=== PATIENT | male | born 1965 | race Caucasian/White ===

== ENCOUNTER 2023-06-08 09:20 | Inpatient (IN) | payer MEDICARE, MEDICAID, SELFPAY ==
[2023-06-08] VITALS (20 sets, daily range): BP systolic 74–128; BP diastolic 43–87; PULSE 66–77; RESP 14–22; TEMP 35.7–37.1; O2SAT 93–97; BMI 28.4; BMI 27.4
--- NOTE | 2023-06-08 09:51 | RAD_ITS ---
STUDY: X-RAY CHEST REASON FOR EXAM: Male, 58 years old. Confusion TECHNIQUE: Single AP portable view of the chest. COMPARISON: None. FINDINGS: EKG electrodes are seen. The lungs are clear and expanded. There is no demonstrated pleural abnormality. Normal size heart. Normal mediastinum and hermelinda. Normal visualized pulmonary arteries. Normal visualized aortic arch and descending thoracic aorta. Normal visualized thoracic spine. Normal visualized ribs, clavicles, and shoulders. There is no demonstrated abnormality of the visualized soft tissue structures of the upper abdomen. RAD/Chest 1 View (Portable) IMPRESSION: Normal x-ray examination of the chest. Electronically Signed: Rivera Murray MD at 11:37 EDT ,
--- NOTE | 2023-06-08 09:54 | EKG12_ITS ---
Test Reason : SOB Blood Pressure : / mmHG Vent. Rate : 068 BPM Atrial Rate : 068 BPM P-R Int : 186 ms QRS Dur : 100 ms QT Int : 410 ms P-R-T Axes : 058 040 039 degrees QTc Int : 435 ms Normal sinus rhythm Low voltage QRS Nonspecific T wave abnormality Abnormal ECG Confirmed by Lito Vaughan ([id number]), newspaper photo editor ULICES PULLIAM ([id number]) on 06/09/2023 11:15:20 AM Referred By: Confirmed By:Lito Vaughan
--- NOTE | 2023-06-08 09:57 | EX.ED.DYSGE1 ---
HPI History of Present Illness Chief Complaint: Weakness Informant: [facility] Limited: uncooperative Onset/Context/Timing Onset: Today Timing: Continuous Quality: Confused Location: Generalized Worsened by: Nothing Relieved by: Nothing Narrative Narrative: Patient presents with confusion and hallucinations that was noticed today at the extended care facility. Patient is a poor informant. Patient is confused. Patient knows he is in [place] but does not know the year. Patient does not answer questions appropriately. ECF staff reports that the patient became confused today. ECF staff noted that the patient's blood pressure was low. ECF staff noted that the patient was having some hallucinations today. ECF staff also reports that he was in contact with someone who was positive for COVID recently. The patient was then transferred to the emergency department. [facility] Medical History Constipation COPD exacerbation Delusional disorder Depression Drug-induced movement disorder GERD (gastroesophageal reflux disease) HTN (hypertension) Hyperlipidemia Hyponatremia Hypothyroidism Impaired hearing Noncompliance w/medication treatment due to intermit use of medication Osteoarthritis Schizoaffective disorder Schizophrenia Tobacco abuse Vitamin D deficiency Medical History unable to obtain unable to obtain Home Medications acetaminophen 325 mg tablet (Aphen) 650 mg PO Q4H PRN pain 06/08/23 [History Last Taken Unknown] aluminum-mag hydroxide-simethicone 200 mg-200 mg-20 mg/5 mL oral susp (Maalox Advanced) 30 ml PO Q8H PRN indigestion 06/08/23 [History Last Taken Unknown] atorvastatin 10 mg tablet 20 mg PO DAILY 06/08/23 [History Last Taken Unknown] bupropion HCl 150 mg 24 hr tablet, extended release (Wellbutrin XL) 150 mg PO DAILY 06/08/23 [History Last Taken Unknown] bupropion HCl 300 mg 24 hr tablet, extended release (Wellbutrin XL) 300 mg PO DAILY 06/08/23 [History Last Taken Unknown] cholecalciferol (vitamin D3) 125 mcg (5,000 unit) capsule 125 mcg PO DAILY 06/08/23 [History Last Taken Unknown] clozapine 100 mg tablet 100 mg PO DAILY SCHIZOPHRENIA 06/08/23 [History Last Taken Unknown] diazepam 10 mg tablet 10 mg PO BID 06/08/23 [History Last Taken Unknown] famotidine 20 mg tablet 20 mg PO DAILY 06/08/23 [History Last Taken Unknown] hydrochlorothiazide 12.5 mg tablet 12.5 mg PO DAILY 06/08/23 [History Last Taken Unknown] ibuprofen 200 mg tablet (Advil) 400 mg PO Q6H PRN pain 06/08/23 [History Last Taken Unknown] levofloxacin 500 mg tablet 500 mg PO DAILY 06/08/23 [History Last Taken Unknown] lisinopril 10 mg tablet 10 mg PO DAILY 06/08/23 [History Last Taken Unknown] loperamide 2 mg capsule 4 mg PO PRN 06/08/23 [History Last Taken Unknown] lorazepam 1 mg tablet 1 mg PO Q6H PRN anxiety 06/08/23 [History Last Taken Unknown] magnesium hydroxide 400 mg/5 mL oral suspension (Yuan Milk of Magnesia) 30 ml PO DAILY PRN constipation 06/08/23 [History Last Taken Unknown] nicotine (polacrilex) 2 mg buccal mini lozenge (Nicorette) 2 mg buccal Q2H 06/08/23 [History Last Taken Unknown] olanzapine 5 mg tablet 5 mg PO DAILY 06/08/23 [History Last Taken Unknown] oseltamivir 75 mg capsule (Tamiflu) 75 mg PO BID 06/08/23 [History Last Taken Unknown] oxcarbazepine 300 mg tablet (Trileptal) 300 mg PO BID 06/08/23 [History Last Taken Unknown] polyethylene glycol 3350 17 gram/dose oral powder (ClearLax) 17 g PO DAILY PRN constipation 06/08/23 [History Last Taken Unknown] propranolol 120 mg capsule,24 hr,extended release (Inderal LA) 120 mg PO Q24H 06/08/23 [History Last Taken Unknown] psyllium husk 3.4 gram/5.4 gram oral powder (Metamucil) 1 tbsp PO TID PRN constipation 06/08/23 [History Last Taken Unknown] Allergy/AdvReac Type Severity Reaction Status Date / Time No Known Allergies Allergy Verified 06/08/23 09:25 Family History unable to obtain unable to obtain Surgical History unable to obtain unable to obtain Social History (Updated 06/08/23 @ 12:[address] Lupe Thomas DO) housing: assisted Smoking Status: Former smoker ROS ROS ED Review of Systems ROS Unobtainable: due to encephalopathy, due to mental condition and due to mental status EXAM Physical Exam Const Vital Signs: 06/08/23 09:22 06/08/23 10:25 06/08/23 10:30 Temperature 96.9 F L 98.1 F Temperature Source Temporal Temporal Pulse Rate 70 72 70 Respiratory Rate 21 H 14 19 H Respiratory Pattern Blood Pressure 77/43 L 96/76 101/70 Blood Pressure Mean 54 82 80 Pulse Ox 94 95 97 Oxygen Delivery Method Room Air Room Air Room Air 06/08/23 10:31 06/08/23 11:22 06/08/23 12:12 Temperature 98.2 F 97.8 F Temperature Source Temporal Temporal Pulse Rate 74 77 Respiratory Rate 16 18 Respiratory Pattern Normal Blood Pressure 90/71 107/70 Blood Pressure Mean 77 82 Pulse Ox 95 94 Oxygen Delivery Method Room Air Positive well nourished and well developed General Appearance ED: well developed and NAD Neck supple and no JVD Resp normal respiratory effort and clear to auscultation bilaterally Cardio regular rate and regular rhythm GI non-tender Palpation: soft Extremity normal to inspection General Extremety ED: Negative for edema or tenderness General Extremity: Negative for edema Neuro CN's II-XII intact bilaterally and no sensory deficits noted Sensorium / Orientation: alert and orientation impaired Motor Exam: strength 5/5 throughout Psych Mood & Affect: anxious MDM MDM MDM Narrative Medical decision making narrative: Differential diagnosis includes hypercarbia, electrolyte abnormality, dehydration, stroke, intracranial bleeding, hepatic encephalopathy, dehydration, cardiac dysrhythmia, cardiac ischemia, congestive heart failure, viral infection, urinary tract infection, and coagulopathy. CT scan of the brain will be obtained to assess for intracranial bleeding and stroke. Chest x-ray will be obtained to assess for pneumonia. EKG will be obtained to assess for cardiac dysrhythmia and cardiac ischemia. CBC will be obtained to assess for leukocytosis and anemia. Comprehensive metabolic profile will be obtained to assess for hepatic function, renal function, and electrolyte abnormality. Serum ammonia level will be obtained to assess for hepatic encephalopathy. Urinalysis will be obtained to assess for urinary tract infection. PT with INR and PTT will be obtained to assess for coagulopathy. High-sensitivity troponin will be obtained to assess for cardiac ischemia. 2-hour repeat high-sensitivity troponin will be obtained to assess for ongoing cardiac ischemia. BNP will be obtained to assess for congestive heart failure. Lactic acid will be obtained to assess for sepsis. Serum alcohol level will be obtained to assess for alcohol intoxication. COVID-19, influenza, and RSV PCR will be obtained to assess for viral infection. Urine culture will be obtained to assess for urinary tract infection. Blood cultures will be obtained to assess for sepsis. Arterial blood gas will be obtained to assess for hypercarbia. Lab Data Attestation: I reviewed the patient's lab results. Lab results narrative: CBC was reviewed. There is a mild leukocytosis of 15.2. The remainder is within normal limits. PT was INR and PTT were reviewed and were within normal limits. Comprehensive metabolic profile was reviewed. Sodium was low at 127 and chloride was 93. CO2 was low at 17 and anion gap was elevated at 17. BUN was 59 creatinine 6.48. AST was slightly elevated at 82 and ALT was slightly elevated at 99. Serum ammonia level was reviewed and was normal at 24. BNP was reviewed and was normal at 3.6. High-sensitivity troponin was reviewed and was normal at 14. Serum alcohol level was reviewed and was less than 3.0. Serum acetone was reviewed and was negative. Urinalysis is reviewed. Leukocyte esterase was 25 with positive nitrites. There is 0-5 red blood cells and 0-5 white blood cells noted. Serum lactate was reviewed and was normal at 1.6. COVID-19 PCR was reviewed and was negative. Influenza PCR was reviewed and was positive for influenza A and negative for influenza B. RSV PCR was reviewed and was negative. Labs: Laboratory Results - last 24 hr 06/08/23 06/08/23 06/08/23 09:30 10:15 11:15 WBC 15.2 H RBC 4.71 Hgb 13.8 Hct 40.6 MCV 86.2 MCH 29.3 MCHC 34.0 RDW Std Deviation 39.3 RDW Coeff of Noam 12.4 Plt Count 194 MPV 10.1 Immature Gran % (Auto) 0.400 Neut % (Auto) 85.0 H Lymph % (Auto) 6.9 L [place] % (Auto) 7.6 Eos % (Auto) 0.0 Baso % (Auto) 0.1 Absolute Neuts (auto) 13.0 H Absolute Lymphs (auto) 1.05 Nucleated RBC % 0 PT 14.0 INR 1.1 APTT 24.7 Sodium 127 L Potassium 5.1 Chloride 93 L Carbon Dioxide 17.0 L Anion Gap 17 H BUN 59 H Creatinine 6.48 H Estim Creat Clear Calc 14.86 Est GFR (MDRD) Af Amer 11 L Est GFR (MDRD) Non-Af 9 L BUN/Creatinine Ratio 9.1 L Glucose 118 H Lactic Acid 1.6 Calcium 9.4 Total Bilirubin 0.50 AST 82 H ALT 99 H Alkaline Phosphatase 54 Ammonia 24.0 Troponin I High Sens 14 B-Natriuretic Peptide 3.6 Total Protein 7.7 Albumin 3.6 Globulin 4.1 Albumin/Globulin Ratio 0.9 Urine Color Urine Clarity Urine pH Ur Specific [place] Urine Protein Urine Glucose (UA) Urine Ketones Urine Occult Blood Urine Nitrite Urine Bilirubin Urine Urobilinogen Ur Leukocyte Esterase Urine RBC Urine WBC Ur Squamous Epith Cells Urine Bacteria Urine Mucus Ur Random Sodium Urine Creatinine Ethyl Alcohol < 3.0 Acetone Level NEGATIVE 06/08/23 11:30 WBC RBC Hgb Hct MCV MCH MCHC RDW Std Deviation RDW Coeff of [place] Plt Count MPV Immature Gran % (Auto) Neut % (Auto) Lymph % (Auto) [place] % (Auto) Eos % (Auto) Baso % (Auto) Absolute Neuts (auto) Absolute Lymphs (auto) Nucleated RBC % PT INR APTT Sodium Potassium Chloride Carbon Dioxide Anion Gap BUN Creatinine Estim Creat Clear Calc Est GFR (MDRD) Af Amer Est GFR (MDRD) Non-Af BUN/Creatinine Ratio Glucose Lactic Acid Calcium Total Bilirubin AST ALT Alkaline Phosphatase Ammonia Troponin I High Sens B-Natriuretic Peptide Total Protein Albumin Globulin Albumin/Globulin Ratio Urine Color Yellow Urine Clarity Sl. Cloudy Urine pH 5.0 Ur Specific [place] 1.015 Urine Protein 30 H Urine Glucose (UA) Normal Urine Ketones 5 H Urine Occult Blood 10 H Urine Nitrite Positive H Urine Bilirubin 1 H Urine Urobilinogen 1 H Ur Leukocyte Esterase 25 H Urine RBC 0-5 SEEN Urine WBC 0-5 SEEN Ur Squamous Epith Cells 0-5 SEEN Urine Bacteria 1+ Urine Mucus 1+ Ur Random Sodium 7 Urine Creatinine 315.00 Ethyl Alcohol Acetone Level ABG Data ABG results: ABG 06/08/23 11:04 Specimen Type ART Sample Site L Radial pH 7.36 Bicarbonate Actual 18.4 L Total CO2 19 Base Excess -7 L O2 Saturation 91 L ABG pCO2 32.6 L ABG pO2 63 L O2 Delivery Device Room Air Vent Mode Not entered Radiography Chest X-Ray - ED: 1 View, Read by ED Physician, Read by Radiologist and No Acute Disease Diagnostic Testing: Clinical Impression(s) from Imaging Studies Chest X-Ray 06/08/23 09:51 IMPRESSION: Normal x-ray examination of the chest. Electronically Signed: Rivera Murray MD at 11:37 EDT , Brain CT 06/08/23 10:42 IMPRESSION: Tiny lacunae in the insular cortex of the left temporal lobe. This may be subacute. Electronically Signed: Rivera Murray MD at 11:36 EDT , CT scan of the brain was obtained. There are Familia lacunae in the insular cortex of the left temporal lobe. This may be subacute. This was interpreted by the radiologist was also independently reviewed by myself. Portable 1 view chest x-ray was obtained. On my independent interpretation, lung decker are clear. There is normal cardiac silhouette. Bony thorax is normal. There is no acute process noted. Radiologist also interpreted the x-ray and agrees. EKG Initial EKG: Attestation: I personally reviewed and interpreted this EKG as follows: Interpretation: Sinus Rhythm (68), No Acute Injury Pattern and Non-Specific ST Changes Comments: EKG was obtained. On my independent interpretation, it showed a normal sinus rhythm with a rate of 68. ME interval, QRS interval, and QTc intervals were all normal. [place] was normal. There are nonspecific ST-T wave changes. Prior EKG tracings: not available for review Prior: No Prior Management Discussion w/another healthcare provider: Hospitalist Treatment and Re-Evaluation :: Patient was given IV fluids. Patient's blood pressure improved after this. Patient remained confused here in the emergency department. Patient was trying to get out of bed frequently. Because of this, patient was given a dose of Ativan. Patient was advised of the need for hospitalization. Case was discussed with the hospitalist. She will admit the patient to her service. Critical Care Time Critical Care Time: Yes Critical care time (excluding procedures): 30-74 minutes (33), Including time spent:, Discussing w/Patient &/or Family/Scrap Collector, Discussing w/Consultants, Arranging Admission or Transfer and Performing Direct Patient Care at Bedside Discharge Plan Dx/Rx/DC Orders Clinical Impression: Acute kidney injury, Influenza A, Hyponatremia, Altered mental status Disposition Disposition: Acute Care Hospital [facility] Discharge Date/Time: 06/08/23 14:35
[2023-06-08 10:21] LABS: Absolute Lymphocyte Count 1.05 X10^3/uL (0.83-4.51); Basophil# 0.02 X10^3/uL; Basophil% 0.1 % (0-1); Hematocrit 40.6 % (40-54); Hemoglobin 13.8 g/dL (13.0-16.5); Lymphocyte # 1.05 X10^3/ul (0.83-4.51); Lymphocyte % 6.9 % (19-41); Mean Corpuscular Hgb 29.3 pg (27.0-32.0); Mean Corpuscular Volume 86.2 fL (80-94); Mean Platelet Vol. 10.1 fl (6.2-12.0); Monocyte# 1.15 X10^3/uL; Monocyte% 7.6 % (0-10); NRBC Flagged by Analyzer 0 % (0-5); Neutrophil # 12.95 X10^3/uL (2.7-7.7); Platelet Count 194 K/mm3 (150-450); RBC Distribution Width CV 12.4 % (11.6-14.6); RBC Distribution Width SD 39.3 fl (35.1-43.9); Red Blood Count 4.71 M/mm3 (4.6-6.2); White Blood Count 15.2 K/mm3 (4.4-11.0)
[2023-06-08 10:24] LABS: International Normalized Ratio 1.1
[2023-06-08 10:25] LABS: Partial Thromboplast Time 24.7 Seconds (24.1-36.2)
[2023-06-08] MEDS: 0.9% Normal Saline (1000mL) 1,000 ML 1000 ML IV ×2 (10:30→12:27)
--- NOTE | 2023-06-08 10:31 | ED.RN ---
NO OLD EKG
[2023-06-08 10:35] LABS: Lactic Acid 1.6 mmol/L (0.4-1.9)
[2023-06-08 10:41] LABS: ALB/GLOB Ratio 0.9 RATIO (0.9-2.4); AST(SGOT) 82 U/L (15-37); Alanine Aminotransfer ALT/SGPT 99 U/L (16-61); Albumin, Serum 3.6 g/dL (3.2-5.0); Alkaline Phosphatase 54 U/L (45-117); Anion Gap 17 (5-15); BUN 59 mg/dL (7-18); BUN/Creat Ratio 9.1 RATIO (10-20); Calcium,Total 9.4 mg/dL (8.5-10.1); Chloride 93 mmol/L (98-107); Creatinine, Serum 6.48 mg/dL (0.70-1.30); EST Glomerular Filtration Rate 9 mL/min (>60); Est Glom Filt Rate - Afr Amer 11 mL/min (>60); Estimated Creatinine Clearance 14.86 ml/min; Globulin 4.1 g/dL (2.2-4.2); Glucose 118 mg/dL (74-106); Potassium 5.1 mmol/L (3.5-5.1); Protein, Total 7.7 g/dL (6.4-8.2); Sodium Level 127 mmol/L (136-145); Troponin-I HS (w/2H Reflex) 14 pg/mL (3.0-78.0)
--- NOTE | 2023-06-08 10:42 | CT_ITS ---
STUDY: CT BRAIN WITHOUT CONTRAST REASON FOR EXAM: Male, 58 years old. Altered mental status RADIATION DOSAGE (If Supplied By Facility): CTDIvol = ( 44.99 ) mGy, DLP = ( 863.60 ) mGycm TECHNIQUE: Transaxial CT imaging of the brain was performed without administration of intravenous contrast material. Individualized dose optimization techniques were used for this CT. COMPARISON: No relevant priors. FINDINGS: Normal soft tissue structures. Normal calvarium. Normal size ventricles and extra-axial spaces for the patient''s age. Normal white matter tracts of the cerebral hemispheres. Tiny lacunar in the insular cortex of the left temporal lobe. This may be subacute. Normal brainstem. Normal cerebellum. There is no intracranial hemorrhage. There are no findings of an acute ischemic infarction. Minimal mucosal thickening at the bases of the right and left maxillary sinus. CT/Brain/Head without Contrast IMPRESSION: Tiny lacunae in the insular cortex of the left temporal lobe. This may be subacute. Electronically Signed: Rivera Murray MD at 11:36 EDT ,
[2023-06-08 10:45] LABS: BNP,B-Type NATRIURETIC PEPTIDE 3.6 pg/mL (0-100)
[2023-06-08 11:08] LABS: Base Excess -7 mmol/L (-2 to +2); Bicarbonate 18.4 mmol/L (22-26); Blood Gas Specimen Type ART; Mode Not entered; O2 Delivery Device Room Air; PO2 63 mmHG (75-100); SITE L Radial; SO2 91 % (95-99); Total Carbon Dioxide 19 mmol/L; pCO2 32.6 mmHg (35-45); pH 7.36 (7.35-7.45)
[2023-06-08 11:20] LABS: Alcohol, Blood (Medical)-Serum < 3.0 mg/dL
[2023-06-08 11:22] LABS: Reflex Troponin-HS? (from REC) N
[2023-06-08 11:44] LABS: Color, Urine Yellow (Yellow); Glucose, Dipstick Normal (Normal); Ketone-Dipstick 5 mg/dl (Negative); Leukocyte Esterase-Dipstick 25 /ul (Negative); Nitrite-Dipstick Positive (Negative); Occult Blood-Urine 10 /ul (Negative); Protein-Dipstick 30 mg/dl (Negative); Specific Gravity, Urine 1.015 (1.002-1.030); Urine Clarity Sl. Cloudy (Clear); Urine Urobilinogen 1 mg/dl (Normal)
[2023-06-08 11:45] LABS: Urine Bilirubin Dipstick 1 mg/dL (Negative)
[2023-06-08 11:51] LABS: Bacteria 1+ /hpf (None Seen); Mucous, Urine 1+ /hpf (<or=2+); Red Blood Cells-Urine 0-5 SEEN /hpf (0-5); Squamous Epithelial Cells - UA 0-5 SEEN /hpf (0-5); White Blood Cells 0-5 SEEN /hpf (0-5)
[2023-06-08] MEDS: Lorazepam 2 MG/ML WCH Syringe 0.5 MG IV (12:28)
--- NOTE | 2023-06-08 12:28 | ED.RN ---
rn went to waste ativan into waste jug of medroom and entire medication was accidentally wasted. medication was wasted in med machine with Brianda Ross RN and new syringe was pulled and wasted into jug machine to appropriate dose of 0.5mg.
--- NOTE | 2023-06-08 12:41 | US_ITS ---
STUDY: RENAL ULTRASOUND - COMPLETE REASON FOR EXAM: 50 year, old. Acute kidney injury. TECHNIQUE: Ultrasound evaluation of the kidneys was performed with real-time and static eden-scale imaging. COMPARISON: None. FINDINGS: RIGHT KIDNEY: Normal location of the right kidney, which is normal in size. The right kidney measures 11.3 sorry by 5.5 cm x 7.2 cm. There is a normal cortex of the right kidney. The renal cortex measures 1.6 cm. There is no right renal mass or cyst. There are no right renal calculi. There is no right hydronephrosis. DISTAL RIGHT URETER: There is non-visualization of the distal right ureter. There is no demonstrated right ureterovesical junction calculus. There is no demonstrated right ureteral jet. LEFT KIDNEY: Normal location of the left kidney, which is normal in size. The left kidney measures 10.8 cm x 5.7 cm x 6.5 cm. There is a normal cortex of the left kidney. The renal cortex measures 1.3 cm. There is no left renal mass or cyst. There are no left renal calculi. There is no left hydronephrosis. DISTAL LEFT URETER: There is non-visualization of the distal left ureter. There is no demonstrated left ureterovesical junction calculus. There is no demonstrated left ureteral jet. BLADDER: The distended urinary bladder has a volume of 66 ml. There is a normal wall thickness of the distended urinary bladder. There is no demonstrated mass within the urinary bladder. There are no demonstrated bladder calculi. US/Kidney and Bladder IMPRESSION: Normal ultrasound of the kidneys and urinary bladder. Electronically Signed: Rivera Murray MD at 14:27 EDT ,
--- NOTE | 2023-06-08 12:41 | PCM.HP.STD ---
HPI - General General Date of Admission: 06/08/23 Date of Service: 06/08/23 Chief Complaint: Altered mental status HPI Narrative JANAE PANG, is a 58 M who presented to the emergency department which [facility] on 06/08/2023 due to altered mental status. He is a resident at a local [facility] and was fairly confused on admission. He was able to say he was in [place] but did not know the month or year and does not answer questions appropriately. Per [facility] staff reporting he became confused on the day of presentation and he was found to have low blood pressure. [facility] staff also noted that he was having some hallucinations. It was reported that he had contact with someone who was positive for COVID recently and was transferred to the emergency department. Patient was not able to contribute any history and taking off at the time of presentation. On my exam patient was awake but not participating in any questions Vital signs on presentation showed temperature of 96.9, heart rate was 70, blood pressure initially was 77/43 but has improved to 107/70 after IV fluids have been given, respiratory rate is 21 oxygen saturations were 94% on room air. CBC shows a leukocytosis with a white count of 15.2 and a left shift at an 85.0% neutrophilia. He does have a lymphopenia. Coags are unremarkable. ABG showed a blood gas with a pH of 7.36/bicarb 18.4/pCO2 was 32.6/pO2 was 63 with a sat of 91% on room air. His chemistry panel shows significant hyponatremia with a sodium of 127, hypochloremia with a chloride of 93, and elevated serum bicarbonate 17 with an anion gap of 17. His BUN and serum creatinine were markedly elevated at 59 and 6.48. His baseline is unknown as there is no previous data in our system. Lactic acid was normal at 1.6. Transaminases were elevated with an AST of 82 and an ALT of 99. Troponin was normal. BNP was unremarkable at 3.6. His urine was somewhat suggestive of infection showing some nitrites and leuk esterase however there were no white cells. He did have 1+ bacteria. Ethyl alcohol level was unremarkable and acetone was negative. CT of the brain showed tiny lacunar in the insular cortex of the left temporal lobe which was felt to possibly be subacute. Chest x-ray showed unremarkable exam. In the emergency department he was given lorazepam 2 mg IV push x 1 dose and given 2 L IV fluids. [facility] Medical History Constipation COPD exacerbation Delusional disorder Depression Drug-induced movement disorder GERD (gastroesophageal reflux disease) HTN (hypertension) Hyperlipidemia Hyponatremia Hypothyroidism Impaired hearing Noncompliance w/medication treatment due to intermit use of medication Osteoarthritis Schizoaffective disorder Schizophrenia Tobacco abuse Vitamin D deficiency Medical History unable to obtain Home Medications acetaminophen 325 mg tablet (Aphen) 650 mg PO Q4H PRN pain 06/08/23 [History Last Taken Unknown] aluminum-mag hydroxide-simethicone 200 mg-200 mg-20 mg/5 mL oral susp (Maalox Advanced) 30 ml PO Q8H PRN indigestion 06/08/23 [History Last Taken Unknown] atorvastatin 10 mg tablet 20 mg PO DAILY 06/08/23 [History Last Taken Unknown] bupropion HCl 150 mg 24 hr tablet, extended release (Wellbutrin XL) 150 mg PO DAILY 06/08/23 [History Last Taken Unknown] bupropion HCl 300 mg 24 hr tablet, extended release (Wellbutrin XL) 300 mg PO DAILY 06/08/23 [History Last Taken Unknown] cholecalciferol (vitamin D3) 125 mcg (5,000 unit) capsule 125 mcg PO DAILY 06/08/23 [History Last Taken Unknown] clozapine 100 mg tablet 100 mg PO DAILY SCHIZOPHRENIA 06/08/23 [History Last Taken Unknown] diazepam 10 mg tablet 10 mg PO BID 06/08/23 [History Last Taken Unknown] famotidine 20 mg tablet 20 mg PO DAILY 06/08/23 [History Last Taken Unknown] hydrochlorothiazide 12.5 mg tablet 12.5 mg PO DAILY 06/08/23 [History Last Taken Unknown] ibuprofen 200 mg tablet (Advil) 400 mg PO Q6H PRN pain 06/08/23 [History Last Taken Unknown] levofloxacin 500 mg tablet 500 mg PO DAILY 06/08/23 [History Last Taken Unknown] lisinopril 10 mg tablet 10 mg PO DAILY 06/08/23 [History Last Taken Unknown] loperamide 2 mg capsule 4 mg PO PRN 06/08/23 [History Last Taken Unknown] lorazepam 1 mg tablet 1 mg PO Q6H PRN anxiety 06/08/23 [History Last Taken Unknown] magnesium hydroxide 400 mg/5 mL oral suspension ([place] of eBuddy) 30 ml PO DAILY PRN constipation 06/08/23 [History Last Taken Unknown] nicotine (polacrilex) 2 mg buccal mini lozenge (Nicorette) 2 mg buccal Q2H 06/08/23 [History Last Taken Unknown] olanzapine 5 mg tablet 5 mg PO DAILY 06/08/23 [History Last Taken Unknown] oseltamivir 75 mg capsule (Tamiflu) 75 mg PO BID 06/08/23 [History Last Taken Unknown] oxcarbazepine 300 mg tablet (Trileptal) 300 mg PO BID 06/08/23 [History Last Taken Unknown] polyethylene glycol 3350 17 gram/dose oral powder (ClearLax) 17 g PO DAILY PRN constipation 06/08/23 [History Last Taken Unknown] propranolol 120 mg capsule,24 hr,extended release (Inderal LA) 120 mg PO Q24H 06/08/23 [History Last Taken Unknown] psyllium husk 3.4 gram/5.4 gram oral powder (Metamucil) 1 tbsp PO TID PRN constipation 06/08/23 [History Last Taken Unknown] Allergy/AdvReac Type Severity Reaction Status Date / Time No Known Allergies Allergy Verified 06/08/23 09:25 Family History unable to obtain unable to obtain Surgical History unable to obtain unable to obtain Social History (Updated 06/08/23 @ 12:[address] Lupe Thomas, DO) housing: senior living Smoking Status: Former smoker ROS Review of Systems ROS Unobtainable: due to encephalopathy and due to mental status Vital Signs Vital Signs Vital Signs: 06/08/23 09:22 06/08/23 10:25 06/08/23 10:30 Temperature 96.9 F L 98.1 F Temperature Source Temporal Temporal Pulse Rate 70 72 70 Respiratory Rate 21 H 14 19 H Respiratory Pattern Blood Pressure 77/43 L 96/76 101/70 Blood Pressure Mean 54 82 80 Pulse Ox 94 95 97 Oxygen Delivery Method Room Air Room Air Room Air 06/08/23 10:31 06/08/23 11:22 06/08/23 12:12 Temperature 98.2 F 97.8 F Temperature Source Temporal Temporal Pulse Rate 74 77 Respiratory Rate 16 18 Respiratory Pattern Normal Blood Pressure 90/71 107/70 Blood Pressure Mean 77 82 Pulse Ox 95 94 Oxygen Delivery Method Room Air Weight Weight: 95 kg Body Mass Index (BMI) 28.4 Physical Exam Const alert, no apparent distress and well nourished; Negative for oriented x3, average body habitus or healthy appearing Constitutional Narrative: Overweight, agitated, middle-aged, white male, lying in bed, intermittently trying to punch me and kick me, patient will not participate with orientation questions however it appears he is currently only oriented to self, otherwise appears comfortable and nontoxic General Appearance: uncooperative HEENT normocephalic, head/scalp atraumatic and hearing grossly normal bilaterally HEENT Narrative: Patient resisting oral exam Eyes PERRL, EOMs intact bilaterally and conjunctivae normal Eyes Narrative: No scleral icterus Neck no lymphadenopathy and supple Neck Narrative: Trachea midline, no thyroid enlargement Resp normal respiratory effort, no retractions, no use of accessory muscles and clear to auscultation bilaterally Auscultation: Negative for rales, rhonchi or wheezes Cardio regular rate, regular rhythm, S1 normal heart sound, S2 normal heart sound, no murmurs, no rub, no gallops and no clicks GI normal to inspection, nondistended, normoactive bowel sounds, soft to palpation and non-tender Extremity no clubbing, cyanosis or edema Extremity Narrative: Pedal pulses are 2+ Skin no rashes or lesions noted, no wounds, skin turgor normal, no jaundice, no petechiae and no mottling Skin Narrative: No significant lesions noted Neuro moves all extremities and no focal motor deficits Sensorium / Orientation: awake and alert Speech: speech normal Psych Psych Narrative: Agitated and combative Results Lab / Micro Data Attestation: I reviewed the patient's lab results. 06/08/23 09:30 06/08/23 15:40 Labs: Laboratory Results - last 24 hr 06/08/23 09:30: WBC 15.2 H, RBC 4.71, Hgb 13.8, Hct 40.6, MCV 86.2, MCH 29.3, MCHC 34.0, RDW Std Deviation 39.3, RDW Coeff of Noam 12.4, Plt Count 194, MPV 10.1, Immature Gran % (Auto) 0.400, Neut % (Auto) 85.0 H, Lymph % (Auto) 6.9 L, [place] % (Auto) 7.6, Eos % (Auto) 0.0, Baso % (Auto) 0.1, Absolute Neuts (auto) 13.0 H, Absolute Lymphs (auto) 1.05, Nucleated RBC % 0, PT 14.0, INR 1.1, APTT 24.7, Sodium 127 L, Potassium 5.1, Chloride 93 L, Carbon Dioxide 17.0 L, Anion Gap 17 H, BUN 59 H, Creatinine 6.48 H, Estim Creat Clear Calc 14.86, Est GFR (MDRD) Af Amer 11 L, Est GFR (MDRD) Non-Af 9 L, BUN/Creatinine Ratio 9.1 L, Glucose 118 H, Lactic Acid 1.6, Calcium 9.4, Total Bilirubin 0.50, AST 82 H, ALT 99 H, Alkaline Phosphatase 54, Troponin I High Sens 14, B-Natriuretic Peptide 3.6, Total Protein 7.7, Albumin 3.6, Globulin 4.1, Albumin/Globulin Ratio 0.9 06/08/23 10:15: Ammonia 24.0, Ethyl Alcohol < 3.0 06/08/23 11:15: Acetone Level NEGATIVE 06/08/23 11:30: Urine Color Yellow, Urine Clarity Sl. Cloudy, Urine pH 5.0, Ur Specific [place] 1.015, Urine Protein 30 H, Urine Glucose (UA) Normal, Urine Ketones 5 H, Urine Occult Blood 10 H, Urine Nitrite Positive H, Urine Bilirubin 1 H, Urine Urobilinogen 1 H, Ur Leukocyte Esterase 25 H, Urine RBC 0-5 SEEN, Urine WBC 0-5 SEEN, Ur Squamous Epith Cells 0-5 SEEN, Urine Bacteria 1+, Urine Mucus 1+ Micro: Microbiology 06/08/23 10:30 Mucosa - Nose SARS-CoV-2, Influenza & RSV (PCR) - Final Influenzae A ABG Data ABG results: ABG 06/08/23 11:04 Specimen Type ART Sample Site L Radial pH 7.36 Bicarbonate Actual 18.4 L Total CO2 19 Base Excess -7 L O2 Saturation 91 L ABG pCO2 32.6 L ABG pO2 63 L O2 Delivery Device Room Air Vent Mode Not entered Imaging Radiology Impression Chest X-Ray 06/08/23 09:51 IMPRESSION: Normal x-ray examination of the chest. Electronically Signed: Rivera Murray MD at 11:37 EDT , Brain CT 06/08/23 10:42 IMPRESSION: Tiny lacunae in the insular cortex of the left temporal lobe. This may be subacute. Electronically Signed: Rivera Murray MD at 11:36 EDT , Assessment & Plan Assessment/Plan (1) Acute kidney injury: (2) Influenza A: (3) Hyponatremia: (4) Toxic metabolic encephalopathy: (5) Abnormal urinalysis: (6) Leukocytosis: (7) High anion gap metabolic acidosis: (8) Transaminitis: (9) CVA (cerebral vascular accident): PLAN: Plan Acute hypoxia secondary to influenza A -Tamiflu 30 mg daily due to abnormal renal function -Supportive care -PT/OT consultation -Isolation per protocol -Will treat for potential superimposed pneumonia as well -Check sputum culture as able -Blood and urine cultures were sent and are pending -Will place on ceftriaxone and azithromycin for now -Pulmonary toilet as ordered -I-S and Acapella as able SEBLE -We obtained labs from his facility which showed a normal BUN and creatinine on 05/30/2023 -Serum creatinine on admission was 6.48 with a BUN of 59 -Highly anticipate this is prerenal -Check urine studies -Check retroperitoneal ultrasound -Place Mcmahon if patient allows -Aggressive IV fluids -Hold home antihypertensives including hydrochlorothiazide -Discontinue levofloxacin -Hold home lisinopril -Avoid nephrotoxins as able -Renally dose medicines as needed -If renal function does not improve with IV fluids may need to consider nephrology input however no current need for CURRICULUM WRITER so we will continue to monitor for now High anion gap metabolic acidosis -Likely related to SEBLE -Repeat BMP after hydration to ensure resolution -Trend lab -Acetone and alcohol are unremarkable Acute on chronic hyponatremia -Baseline is unclear -Acute likely related from influenza infection and dehydration -Continue to follow -Should trend up with IV fluids Toxic/metabolic encephalopathy -Likely related to influenza and uremia -Continue to monitor -Baseline has some baseline mental status issues from schizophrenia/schizoaffective disorder Hypertension -Blood pressures were on the lower side at presentation likely related to dehydration -Hold all home antihypertensives -Continue to monitor and reinitiate as needed Abnormal urinalysis -Concerning for infection -Urine culture sent -Continue ceftriaxone as initiated the emergency department Transaminitis -Likely related to acute infection and dehydration -Treatment as above -Continue to monitor closely Subacute stroke -CT of the brain was suggestive for tiny lacunar in the insular cortex of the left temporal lobe -Check MRI -Check lipid panel -Check hemoglobin A1c -Continue statin -Start aspirin 81 mg daily -If MRI shows stroke will need echocardiogram and neurology consultation Leukocytosis -Likely related to the above -Continue to monitor -Antibiotics as noted Hyperlipidemia -Will continue statin but monitor with transaminase elevation GERD -Continue home famotidine Tobacco abuse -Continue nicotine replacement therapy -Encourage cessation -Suspect patient has some baseline COPD however no PFTs available Chronic constipation -Continue home bowel regimen Vitamin D deficiency -Continue home vitamin D supplementation Schizoaffective disorder/schizophrenia -Continue home Trileptal -Continue home olanzapine -Continue home diazepam -Continue home Clazuril -Continue home Wellbutrin DVT prophylaxis -Subcu Lovenox daily CODE STATUS -DNR CCA with no intubation per records from facility Charges/Coding Visit Charges Inpatient E&M: 73877 Init Hosp L3
--- NOTE | 2023-06-08 12:49 | MRI_ITS ---
STUDY: MRI BRAIN WITHOUT CONTRAST REASON FOR EXAM: Male, 58 years old. Stroke TECHNIQUE: Standardized multiplanar fat and water weighted pulse sequences were obtained. MRI examination brain obtained with standard protocol including multiplanar multiecho noncontrast imaging. Contrast: No contrast administered. COMPARISON: CT of 06/08/2023 HEMISPHERES, CEREBELLUM AND BRAINSTEM: 1. The cerebral parenchyma, ventricular system, subarachnoid spaces have normal configuration and density. There is a normal gyral pattern. There is normal ewing/white differentiation. No midline shift.. 2. Chronic microvascular deep white matter disease is noted. No evidence fluid restriction or acute ischemic change. No evidence of hemosiderin deposition or hemorrhage. 3. There is a dilated perivascular space in the LEFT sublenticular region (series 9: Image 18), corresponding to the reported subinsular abnormality on recent CT. 4. No intraparenchymal mass, hemorrhage, or acute territorial infarct. 5. The cerebellum, brainstem, basilar and suprasellar cisterns have normal appearance. No Chiari malformation. PITUITARY: Infundibulum and pituitary have normal configuration. Midline structures appear normal. CSF SPACES: Appropriate for age. No hydrocephalus. Basal cisterns are patent. VESSELS: 1. There are normal flow voids noted in the great vessels at the skull base ORBITS AND PARANASAL SINUSES: 1. Both globes, extraocular muscles, optic nerves and retrobulbar fat appear unremarkable. 2. Mild mucosal thickening in the ethmoid maxillary sinuses. No air-fluid levels or sinus opacification. BONY ELEMENTS: Bony elements of the cranial vault, facial skeleton and skull base have normal appearance. SCALP AND SOFT TISSUES: Normal appearance of the soft tissues of the scalp and the visualized face OTHER: None MRI/Brain without Contrast IMPRESSION: 1. Mild chronic microvascular deep white matter disease. 2. No mass, hemorrhage, or acute territorial infarct. No evidence fluid restriction. 3. Dilated perivascular space in the sublenticular region on the LEFT corresponding to the recently reported CT abnormality. 4. Mild diffuse ethmoid and maxillary sinus disease. Electronically Signed: Aleksandr Bee MD at 19:42 EDT ,
[2023-06-08 14:33] LABS: Urine Sodium 7 mmol/L (Not Establ.)
[2023-06-08 15:11] LABS: Bedside Glucose 107 mg/dL (74-106)
[2023-06-08 16:07] LABS: Anion Gap 12 (5-15); BUN 62 mg/dL (7-18); BUN/Creat Ratio 9.7 RATIO (10-20); Calcium,Total 8.6 mg/dL (8.5-10.1); Chloride 98 mmol/L (98-107); Creatinine, Serum 6.39 mg/dL (0.70-1.30); EST Glomerular Filtration Rate 10 mL/min (>60); Est Glom Filt Rate - Afr Amer 12 mL/min (>60); Estimated Creatinine Clearance 13.83 ml/min; Glucose 104 mg/dL (74-106); Potassium 5.1 mmol/L (3.5-5.1); Sodium Level 134 mmol/L (136-145)
[2023-06-08] MEDS: Lactated Ringers 1,000 ML 150 ML IV (16:07)
[2023-06-08 16:09] LABS: Cholesterol 126 mg/dL (200); High Density Lipoprotein 32 mg/dL; Triglycerides 332 mg/dL; Very Low Density Lipoprotein 66 mg/dL (5-40)
[2023-06-08 16:16] LABS: Hemoglobin A1c 5.5 % (3.8-5.6)
[2023-06-08] MEDS: Azithromycin 500 MG in Dextrose 5%-Water (250mL Bag) 250 ML 250 MG IV (21:24)
[2023-06-09] VITALS (12 sets, daily range): BP systolic 76–130; BP diastolic 58–92; PULSE 67–90; RESP 16–23; TEMP 36.2–36.6; O2SAT 90–97; BMI 27.5
[2023-06-09] MEDS: Lactated Ringers 1,000 ML 150 ML IV ×3 (02:19→21:00)
[2023-06-09] MEDS: 0.9% Normal Saline (500mL Bag) 500 ML 999 ML IV (04:30)
[2023-06-09 08:04] LABS: Absolute Lymphocyte Count 0.79 X10^3/uL (0.83-4.51); Absolute Neutrophil Count 8.1 X10^3/uL (2.0-7.7); Basophil# 0.02 X10^3/uL; Basophil% 0.2 % (0-1); Hematocrit 35.6 % (40-54); Hemoglobin 11.8 g/dL (13.0-16.5); Lymphocyte # 0.79 X10^3/ul (0.83-4.51); Mean Corp Hgb Conc 33.1 g/dL (32-36); Mean Corpuscular Hgb 28.8 pg (27.0-32.0); Mean Corpuscular Volume 86.8 fL (80-94); Mean Platelet Vol. 9.8 fl (6.2-12.0); Monocyte# 0.99 X10^3/uL; NRBC Flagged by Analyzer 0 % (0-5); Neutrophil # 8.09 X10^3/uL (2.7-7.7); Neutrophil % 81.4 % (47-70); POSITIVE MORPHOLOGY YES; Platelet Count 204 K/mm3 (150-450); RBC Distribution Width CV 12.6 % (11.6-14.6); RBC Distribution Width SD 40.2 fl (35.1-43.9); White Blood Count 9.9 K/mm3 (4.4-11.0)
[2023-06-09 08:05] LABS: Differential Indicated SCAN CRITERIA MET
[2023-06-09 08:37] LABS: ALB/GLOB Ratio 0.8 RATIO (0.9-2.4); AST(SGOT) 47 U/L (15-37); Alanine Aminotransfer ALT/SGPT 79 U/L (16-61); Alkaline Phosphatase 46 U/L (45-117); Anion Gap 11 (5-15); BUN 66 mg/dL (7-18); BUN/Creat Ratio 10.7 RATIO (10-20); Calcium,Total 8.7 mg/dL (8.5-10.1); Chloride 100 mmol/L (98-107); Creatinine, Serum 6.19 mg/dL (0.70-1.30); EST Glomerular Filtration Rate 10 mL/min (>60); Est Glom Filt Rate - Afr Amer 12 mL/min (>60); Estimated Creatinine Clearance 14.28 ml/min; Globulin 3.8 g/dL (2.2-4.2); Glucose 110 mg/dL (74-106); Magnesium 3.1 mg/dL (1.6-2.6); Phosphorus 5.8 mg/dL (2.5-4.9); Potassium 3.6 mmol/L (3.5-5.1); Protein, Total 6.8 g/dL (6.4-8.2); Sodium Level 134 mmol/L (136-145); Thyroid Stim Hormone (TSH) 0.63 uIU/mL (0.358-3.74)
[2023-06-09] MEDS: buPROPion (XL) 300 MG TABLET.XL PO (10:25)
[2023-06-09] MEDS: Famotidine 20 MG Tablet PO (10:25)
[2023-06-09] MEDS: Enoxaparin 30 MG/0.3 ML Syringe SC (10:26)
[2023-06-09] MEDS: Ceftriaxone 2 GM in 0.9% Normal Saline (50mL MB+) 50 ML IV (10:26)
[2023-06-09] MEDS: Oseltamivir Phosphate 30 MG Capsule PO (10:27)
[2023-06-09] MEDS: OXcarbazepine 300 MG Tablet PO ×2 (10:28→20:57)
[2023-06-09] MEDS: diazePAM 5 MG Tablet 10 MG PO ×2 (10:28→21:00)
[2023-06-09] MEDS: cloZAPine 100 MG TABLET PO (10:28)
[2023-06-09] MEDS: Cholecalciferol (Vit D3) 125 MCG CAPSULE (5,000 UNITS) PO (10:29)
[2023-06-09] MEDS: buPROPion (XL) 150 MG TABLET.XL PO (10:30)
[2023-06-09] MEDS: OLANZapine 5 MG/TAB TAB.RAPDIS PO (10:30)
[2023-06-09] MEDS: Azithromycin 500 MG in Dextrose 5%-Water (250mL Bag) 250 ML 250 MG IV (10:31)
--- NOTE | 2023-06-09 10:40 | CASEMGMT ---
Discharge Planning Updates faxed to [facility]. Asked if precert will be needed and requested copy of guardianship order. Carolyn Cam, Discharge Planning Asst.
--- NOTE | 2023-06-09 17:00 | PN.HOSP_ITS ---
Reason for Visit Reason for Visit: Altered mental status Subjective Subjective Patient is much more awake today and interacts somewhat more appropriately. Much less combative. Was able to eat and drink. P.o. intake has been poor with regards to food however he is taking an considerable amount of fluids. Renal function improved however still not anywhere near normalized. Objective Data Objective Data Vital Signs: Vital Signs Temp Pulse Resp BP Pulse Ox O2 Del Method O2 Flow Rate 97.1 F L 87 16 117/77 91 Nasal Cannula 2 06/09/23 16:00 06/09/23 16:00 06/09/23 16:00 06/09/23 16:00 06/09/23 16:00 06/09/23 16:00 06/09/23 16:42 Oxygen Flow Rate (L/min) 2 Oxygen Delivery Method Nasal Cannula Weight: 92 kg Body Mass Index (BMI) 27.5 Intake & Output: Intake and Output for Last 24 Hours 06/07/23 06/08/23 06/09/23 23:59 23:59 23:59 Intake Total 3057.5 / 3057.5 2522.5 / 2522.5 Output Total 300 / 800 850 / 850 Balance 2757.5 / 2257.5 1672.5 / 1672.5 Lab / Micro Data 06/09/23 07:07 06/09/23 07:07 Labs: Laboratory Results - last 24 hr 06/09/23 07:07: WBC 9.9, RBC 4.10 L, Hgb 11.8 L, Hct 35.6 L, MCV 86.8, MCH 28.8, MCHC 33.1, RDW Std Deviation 40.2, RDW Coeff of Noam 12.6, Plt Count 204, MPV 9.8, Immature Gran % (Auto) 0.400, Neut % (Auto) 81.4 H, Lymph % (Auto) 8.0 L, [place] % (Auto) 10.0, Eos % (Auto) 0.0, Baso % (Auto) 0.2, Absolute Neuts (auto) 8.1 H, Absolute Lymphs (auto) 0.79 L, Nucleated RBC % 0, Sodium 134 L, Potassium 3.6, Chloride 100, Carbon Dioxide 23.0, Anion Gap 11, BUN 66 H, Creatinine 6.19 H, Estim Creat Clear Calc 14.28, Est GFR (MDRD) Af Amer 12 L, Est GFR (MDRD) Non-Af 10 L, BUN/Creatinine Ratio 10.7, Glucose 110 H, Calcium 8.7, Phosphorus 5.8 H, Magnesium 3.1 H, Total Bilirubin 0.50, AST 47 H, ALT 79 H, Alkaline Phosphatase 46, Total Protein 6.8, Albumin 3.0 L, Globulin 3.8, Albumin/Globulin Ratio 0.8 L, TSH 0.63 Micro: Microbiology 06/08/23 10:30 Mucosa - Nose SARS-CoV-2, Influenza & RSV (PCR) - Final Influenzae A Radiography Diagnostic Testing: Radiology Impression Brain MRI 06/08/23 12:49 IMPRESSION: 1. Mild chronic microvascular deep white matter disease. 2. No mass, hemorrhage, or acute territorial infarct. No evidence fluid restriction. 3. Dilated perivascular space in the sublenticular region on the LEFT corresponding to the recently reported CT abnormality. 4. Mild diffuse ethmoid and maxillary sinus disease. Electronically Signed: Aleksandr Bee MD at 19:42 EDT , Physical Exam Const alert, no apparent distress and well nourished; Negative for oriented x3, average body habitus or healthy appearing Constitutional Narrative: Overweight, calm, middle-aged, white male, lying in bed, responds to name today and able to answer some questions that are simple, follows commands for the most part, currently appears comfortable, nontoxic appearing Orientation / Consciousness: confused HEENT normocephalic, head/scalp atraumatic and hearing grossly normal bilaterally HEENT Narrative: Mucous membranes are less dry, Mallampati is 2, no thrush Resp normal respiratory effort, no retractions, no use of accessory muscles and clear to auscultation bilaterally Auscultation: Negative for rales, rhonchi or wheezes Cardio regular rate, regular rhythm, S1 normal heart sound, S2 normal heart sound, no murmurs, no rub, no gallops and no clicks GI normal to inspection, nondistended, normoactive bowel sounds, soft to palpation and non-tender Extremity no clubbing, cyanosis or edema Extremity Narrative: Pedal pulses are 2+ Neuro moves all extremities and no focal motor deficits Neuro Narrative: Following more commands today and interacts more appropriately with responses to questions however I suspect he still not at baseline Sensorium / Orientation: awake, alert and oriented to person Speech: speech normal Psych Psych Narrative: Much calmer today, no sign of combativeness Assessment & Plan Assessment/Plan (1) Acute kidney injury: (2) Influenza A: (3) Hyponatremia: (4) Toxic metabolic encephalopathy: (5) Abnormal urinalysis: (6) Leukocytosis: (7) High anion gap metabolic acidosis: (8) Transaminitis: (9) CVA (cerebral vascular accident): (10) Abnormal CT of brain: PLAN: Plan Acute hypoxia secondary to influenza A -Tamiflu 30 mg daily due to abnormal renal function-day 3 of 5 -Supportive care -PT/OT following -Isolation per protocol -Will treat for potential superimposed pneumonia as well -Sputum culture has not yet able to been produced -Blood and urine cultures remain pending -Continue ceftriaxone and azithromycin for now -Check strep pneumo and Legionella antigens -Pulmonary toilet as ordered -I-S and Acapella as able SEBLE -We obtained labs from his facility which showed a normal BUN and creatinine on 05/30/2023 -Serum creatinine on admission was 6.48 with a BUN of 59--> slowly trending down and is 6.19 today -FeNa was 0.11% indicating prerenal as a tenia -Renal ultrasound is unremarkable -Continue aggressive IV fluids with LR at 150 cc/h -Continue to hold home antihypertensives including hydrochlorothiazide -Hold home lisinopril -Avoid nephrotoxins as able -Renally dose medicines as needed -Renal function is slowly improving and patient is markedly prerenal -No need for LENS INSERTER or nephrology input at this time -Will continue to monitor High anion gap metabolic acidosis -Resolved Acute on chronic hyponatremia -Improved and now to 134 Toxic/metabolic encephalopathy -Likely related to influenza and uremia -Seems to be clinically improving -Continue to monitor -Baseline has some baseline mental status issues from schizophre matthew/schizoaffective disorder Hypertension -Blood pressures were on the lower side at presentation likely related to dehydration -Continue to hold all home antihypertensives -Continue to monitor and reinitiate as needed Abnormal urinalysis -Concerning for infection -Urine culture is pending -Continue ceftriaxone as initiated the emergency department Transaminitis -Likely related to acute infection and dehydration -Trending down -Repeat lab in a.m. Abnormal CT of the brain -CT of the brain was suggestive for tiny lacunar in the insular cortex of the left temporal lobe -MRI was negative for any acute infarct Leukocytosis -Resolved Anemia -11.8 -I suspect this is closer to his baseline given his dehydration and hemoconcentration on admission -Continue to monitor Hyperlipidemia -Will continue statin but monitor with transaminase elevation GERD -Continue home famotidine Tobacco abuse -Continue nicotine replacement therapy -Encourage cessation -Suspect patient has some baseline COPD however no PFTs available Chronic constipation -Continue home bowel regimen Vitamin D deficiency -Continue home vitamin D supplementation Schizoaffective disorder/schizophrenia -Continue home Trileptal -Continue home olanzapine -Continue home diazepam -Continue home Clazuril -Continue home Wellbutrin DVT prophylaxis -Subcu Lovenox daily CODE STATUS -DNR CCA with no intubation per records from facility Charges/Coding Visit Charges Inpatient E&M: 22198 Subs Hosp L2
[2023-06-09] MEDS: Atorvastatin Calcium 20 MG Tablet PO (20:57)
[2023-06-10 01:44] VITALS: BMI 29.5
[2023-06-10] MEDS: Lactated Ringers 1,000 ML 150 ML IV ×3 (03:28→20:21)
[2023-06-10 03:31] VITALS: BP 142/94; PULSE 81; RESP 18; TEMP 37.1; O2SAT 95
[2023-06-10 07:14] LABS: Absolute Lymphocyte Count 1.04 X10^3/uL (0.83-4.51); Absolute Neutrophil Count 5.9 X10^3/uL (2.0-7.7); Basophil# 0.01 X10^3/uL; Basophil% 0.1 % (0-1); Hematocrit 36.6 % (40-54); Hemoglobin 12.2 g/dL (13.0-16.5); Lymphocyte # 1.04 X10^3/ul (0.83-4.51); Lymphocyte % 13.1 % (19-41); Mean Corp Hgb Conc 33.3 g/dL (32-36); Mean Corpuscular Hgb 28.7 pg (27.0-32.0); Mean Corpuscular Volume 86.1 fL (80-94); Mean Platelet Vol. 10.4 fl (6.2-12.0); Monocyte% 11.4 % (0-10); NRBC Flagged by Analyzer 0 % (0-5); Neutrophil # 5.93 X10^3/uL (2.7-7.7); POSITIVE COUNT YES; Platelet Count 217 K/mm3 (150-450); RBC Distribution Width CV 12.5 % (11.6-14.6); RBC Distribution Width SD 39.2 fl (35.1-43.9); Red Blood Count 4.25 M/mm3 (4.6-6.2); White Blood Count 7.9 K/mm3 (4.4-11.0)
[2023-06-10 07:15] LABS: Differential Indicated SCAN CRITERIA MET
[2023-06-10 07:31] LABS: ALB/GLOB Ratio 0.9 RATIO (0.9-2.4); AST(SGOT) 45 U/L (15-37); Alanine Aminotransfer ALT/SGPT 75 U/L (16-61); Alkaline Phosphatase 44 U/L (45-117); Anion Gap 9 (5-15); BUN 53 mg/dL (7-18); BUN/Creat Ratio 13.1 RATIO (10-20); Calcium,Total 8.8 mg/dL (8.5-10.1); Chloride 102 mmol/L (98-107); Creatinine, Serum 4.04 mg/dL (0.70-1.30); EST Glomerular Filtration Rate 16 mL/min (>60); Est Glom Filt Rate - Afr Amer 20 mL/min (>60); Estimated Creatinine Clearance 24.24 ml/min; Globulin 3.5 g/dL (2.2-4.2); Glucose 115 mg/dL (74-106); Potassium 3.2 mmol/L (3.5-5.1); Protein, Total 6.5 g/dL (6.4-8.2); Sodium Level 135 mmol/L (136-145)
[2023-06-10 07:36] VITALS: O2SAT 94
[2023-06-10 09:30] VITALS: BP 134/96; PULSE 90; RESP 16; TEMP 36.1; O2SAT 95
[2023-06-10] MEDS: Enoxaparin 30 MG/0.3 ML Syringe SC (09:40)
[2023-06-10] MEDS: cloZAPine 100 MG TABLET PO (09:41)
[2023-06-10] MEDS: Potassium Chloride Oral Tablet 20 MEQ 60 MEQ PO (09:41)
[2023-06-10] MEDS: Famotidine 20 MG Tablet PO (09:42)
[2023-06-10] MEDS: Oseltamivir Phosphate 30 MG Capsule PO (09:42)
[2023-06-10] MEDS: diazePAM 5 MG Tablet 10 MG PO ×2 (09:42→22:19)
[2023-06-10] MEDS: OXcarbazepine 300 MG Tablet PO ×2 (09:42→22:19)
[2023-06-10] MEDS: Cholecalciferol (Vit D3) 125 MCG CAPSULE (5,000 UNITS) PO (09:42)
[2023-06-10] MEDS: buPROPion (XL) 300 MG TABLET.XL PO (09:43)
[2023-06-10] MEDS: buPROPion (XL) 150 MG TABLET.XL PO (09:46)
[2023-06-10] MEDS: OLANZapine 5 MG/TAB TAB.RAPDIS PO (09:49)
[2023-06-10] MEDS: Ceftriaxone 2 GM in 0.9% Normal Saline (50mL MB+) 50 ML IV (12:29)
[2023-06-10] MEDS: 0.9% Saline Lock 10 ML Syringe IV ×2 (12:30→13:04)
[2023-06-10] MEDS: Azithromycin 500 MG in Dextrose 5%-Water (250mL Bag) 250 ML 250 MG IV (13:03)
--- NOTE | 2023-06-10 13:27 | PN.HOSP_ITS ---
Reason for Visit Reason for Visit: Mental status change Subjective Subjective No issues overnight. Patient states he is just feeling tired. More awake and alert however still having some difficulty with alertness and self-care. At baseline he is alert and oriented x 3 and can feed himself. Patient did pull his IV out earlier today so they are trying to get a new IV in because he still needs IV fluids. Objective Data Objective Data Vital Signs: Vital Signs Temp Pulse Resp BP Pulse Ox O2 Del Method O2 Flow Rate 96.9 F L 90 16 134/96 H 95 Room Air 2 06/10/23 09:30 06/10/23 09:30 06/10/23 09:30 06/10/23 09:30 06/10/23 09:30 06/10/23 09:36 06/10/23 07:36 Oxygen Flow Rate (L/min) 2 Oxygen Delivery Method Room Air Weight: 98.6 kg Body Mass Index (BMI) 29.5 Intake & Output: Intake and Output for Last 24 Hours 06/08/23 06/09/23 06/10/23 23:59 23:59 23:59 Intake Total 3057.5 / 3057.5 3522.5 / 3522.5 2019 / 2019 Output Total 300 / 800 1300 / 1300 700 / 700 Balance 2757.5 / 2257.5 2222.5 / 2222.5 1320 / 1320 Lab / Micro Data 06/10/23 06:35 06/10/23 06:35 Labs: Laboratory Results - last 24 hr 06/10/23 06:35: WBC 7.9, RBC 4.25 L, Hgb 12.2 L, Hct 36.6 L, MCV 86.1, MCH 28.7, MCHC 33.3, RDW Std Deviation 39.2, RDW Coeff of Noam 12.5, Plt Count 217, MPV 10.4, Immature Gran % (Auto) 0.400, Neut % (Auto) 75.0 H, Lymph % (Auto) 13.1 L, [place] % (Auto) 11.4 H, Eos % (Auto) 0.0, Baso % (Auto) 0.1, Absolute Neuts (auto) 5.9, Absolute Lymphs (auto) 1.04, Nucleated RBC % 0, Sodium 135 L, Potassium 3.2 L, Chloride 102, Carbon Dioxide 24.0, Anion Gap 9, BUN 53 H, Creatinine 4.04 H, Estim Creat Clear Calc 24.24, Est GFR (MDRD) Af Amer 20 L, Est GFR (MDRD) Non-Af 16 L, BUN/Creatinine Ratio 13.1, Glucose 115 H, Calcium 8.8, Total Bilirubin 0.40, AST 45 H, ALT 75 H, Alkaline Phosphatase 44 L, Total Protein 6.5, Albumin 3.0 L, Globulin 3.5, Albumin/Globulin Ratio 0.9 Micro: Microbiology 06/08/23 11:15 Blood Culture (Wb) - Right Hand Blood Culture - Preliminary No growth in 48 hours. 06/08/23 10:15 Blood Culture (Wb) - Right Hand Blood Culture - Preliminary No growth in 48 hours. 06/08/23 11:30 Urine, Clean Catch Urine Culture - Final Culture exhibits no growth. 06/09/23 18:23 Urine Catheter - Mcmahon Legionella Antigen - Final 06/09/23 18:23 Urine Catheter - Mcmahon Streptococcus pneumoniae Antigen (M - Final 06/08/23 10:30 Mucosa - Nose SARS-CoV-2, Influenza & RSV (PCR) - Final Influenzae A Physical Exam Const alert, no apparent distress and well nourished; Negative for oriented x3, average body habitus or healthy appearing Constitutional Narrative: Overweight, calm, middle-aged, white male, sitting up in a chair at the bedside, able to interact much more profusely today than yesterday, Appears comfortable nontoxic General Appearance: uncooperative Orientation / Consciousness: confused HEENT normocephalic, head/scalp atraumatic and hearing grossly normal bilaterally Resp normal respiratory effort, no retractions, no use of accessory muscles and clear to auscultation bilaterally Auscultation: Negative for rales, rhonchi or wheezes Cardio regular rate, regular rhythm, S1 normal heart sound, S2 normal heart sound, no murmurs, no rub, no gallops and no clicks GI normal to inspection, nondistended, normoactive bowel sounds, soft to palpation and non-tender Extremity no clubbing, cyanosis or edema Extremity Narrative: Pedal pulses are 2+ Neuro moves all extremities and no focal motor deficits Neuro Narrative: Continues to be more alert and appropriate however still not to baseline, speech is intact and understandable but response times are somewhat slow Sensorium / Orientation: awake, alert and oriented to person Psych Psych Narrative: Calm sitting up in a chair, able to answer more questions, affect is flattened patient appears to be sleepy Assessment & Plan Assessment/Plan (1) Acute kidney injury: (2) Influenza A: (3) Hyponatremia: (4) Toxic metabolic encephalopathy: (5) Abnormal urinalysis: (6) Leukocytosis: (7) High anion gap metabolic acidosis: (8) Transaminitis: (9) CVA (cerebral vascular accident): (10) Abnormal CT of brain: PLAN: Plan Acute hypoxia secondary to influenza A -Tamiflu 30 mg daily due to abnormal renal function-day 4 of 5 as patient had 2 doses prior to his first dose here -Supportive care -PT/OT following -Isolation per protocol -Strep pneumo and Legionella antigens are negative -Blood and urine cultures are negative -Discontinue antibiotics -Pulmonary toilet as ordered -I-S and Acapella as able SEBLE secondary to prerenal acidemia from dehydration -We obtained labs from his facility which showed a normal BUN and creatinine on 05/30/2023 -Serum creatinine on admission was 6.48 with a BUN of 59--> and down to 4.04 today -Continue aggressive IV fluids with LR at 150 cc/h -Continue to hold home antihypertensives including hydrochlorothiazide -Continue to hold home lisinopril -Avoid nephrotoxins as able -Renally dose medicines as needed -Repeat BMP in a.m. Acute on chronic hyponatremia -Improved and now to 135 Toxic/metabolic encephalopathy -Likely related to influenza and uremia -Continues to improve however we have discussed his baseline with the facility and he is ANO x 3 and can feed himself -Currently still fatigued and mildly confused and requiring assistance -Continue to monitor -Baseline has some baseline mental status issues from schizophrenia/schizo affective disorder Hypertension -Blood pressures were on the lower side at presentation likely related to dehydration -Continue to hold all home antihypertensives -Continue to monitor and reinitiate as needed Abnormal urinalysis -Culture was negative -Discontinue antibiotics Transaminitis -Likely related to acute infection and dehydration -Continues to improve -No reason for ongoing monitoring Abnormal CT of the brain -CT of the brain was suggestive for tiny lacunar in the insular cortex of the left temporal lobe -MRI was negative for any acute infarct Leukocytosis -Resolved Anemia -11.8 -I suspect this is closer to his baseline given his dehydration and hemoconcentration on admission -Continue to monitor Hyperlipidemia -Will continue statin but monitor with transaminase elevation GERD -Continue home famotidine Tobacco abuse -Continue nicotine replacement therapy -Encourage cessation -Suspect patient has some baseline COPD however no PFTs available Chronic constipation -Continue home bowel regimen Vitamin D deficiency -Continue home vitamin D supplementation Schizoaffective disorder/schizophrenia -Continue home Trileptal -Continue home olanzapine -Continue home diazepam -Continue home Clazuril -Continue home Wellbutrin DVT prophylaxis -Subcu Lovenox daily CODE STATUS -DNR CCA with no intubation per records from facility Disposition: -I anticipate he will need at least another 48 hours of hospitalization but we will reassess mental status and renal function again tomorrow Charges/Coding Visit Charges Inpatient E&M: 36493 Subs Hosp L2
[2023-06-10 16:21] VITALS: BP 149/90; PULSE 83; RESP 16; TEMP 36.4; O2SAT 95
[2023-06-10] MEDS: Atorvastatin Calcium 20 MG Tablet PO (22:19)
[2023-06-10 22:21] VITALS: BP 144/88; PULSE 86; RESP 16; TEMP 36.9; O2SAT 93
[2023-06-11] VITALS (10 sets, daily range): BP systolic 118–163; BP diastolic 46–111; PULSE 51–130; RESP 16–22; TEMP 36.4–36.8; O2SAT 92–97; BMI 29.4
[2023-06-11] MEDS: Lactated Ringers 1,000 ML 150 ML IV ×4 (02:53→23:15)
[2023-06-11] MEDS: Ipratropium/Albuterol Sulfate 3 ML AMPUL.NEB INHALATION ×2 (05:47→20:13)
[2023-06-11 08:12] LABS: Absolute Lymphocyte Count 1.51 X10^3/uL (0.83-4.51); Absolute Neutrophil Count 5.4 X10^3/uL (2.0-7.7); Basophil# 0.03 X10^3/uL; Basophil% 0.4 % (0-1); Eosinophil# 0.04 X10^3/uL; Eosinophils% 0.5 % (0-5); Hematocrit 32.8 % (40-54); Hemoglobin 10.8 g/dL (13.0-16.5); Lymphocyte # 1.51 X10^3/ul (0.83-4.51); Lymphocyte % 19.3 % (19-41); Mean Corp Hgb Conc 32.9 g/dL (32-36); Mean Corpuscular Hgb 28.3 pg (27.0-32.0); Mean Corpuscular Volume 86.1 fL (80-94); Mean Platelet Vol. 9.7 fl (6.2-12.0); Monocyte# 0.78 X10^3/uL; NRBC Flagged by Analyzer 0 % (0-5); Neutrophil # 5.36 X10^3/uL (2.7-7.7); Neutrophil % 68.4 % (47-70); Platelet Count 242 K/mm3 (150-450); RBC Distribution Width CV 12.2 % (11.6-14.6); RBC Distribution Width SD 38.7 fl (35.1-43.9); Red Blood Count 3.81 M/mm3 (4.6-6.2); White Blood Count 7.8 K/mm3 (4.4-11.0)
[2023-06-11 08:52] LABS: Anion Gap 8 (5-15); BUN 32 mg/dL (7-18); BUN/Creat Ratio 14.4 RATIO (10-20); Calcium,Total 8.9 mg/dL (8.5-10.1); Chloride 108 mmol/L (98-107); Creatinine, Serum 2.22 mg/dL (0.70-1.30); EST Glomerular Filtration Rate 33 mL/min (>60); Est Glom Filt Rate - Afr Amer 39 mL/min (>60); Estimated Creatinine Clearance 44.08 ml/min; Glucose 92 mg/dL (74-106); Potassium 3.2 mmol/L (3.5-5.1); Sodium Level 142 mmol/L (136-145)
[2023-06-11] MEDS: cloZAPine 100 MG TABLET PO (10:22)
[2023-06-11] MEDS: OXcarbazepine 300 MG Tablet PO ×2 (10:23→21:56)
[2023-06-11] MEDS: Famotidine 20 MG Tablet PO (10:23)
[2023-06-11] MEDS: Oseltamivir Phosphate 30 MG Capsule PO (10:23)
[2023-06-11] MEDS: Enoxaparin 30 MG/0.3 ML Syringe SC (10:23)
[2023-06-11] MEDS: buPROPion (XL) 300 MG TABLET.XL PO (10:24)
[2023-06-11] MEDS: diazePAM 5 MG Tablet 10 MG PO ×2 (10:24→21:56)
[2023-06-11] MEDS: OLANZapine 5 MG/TAB TAB.RAPDIS PO (10:25)
[2023-06-11] MEDS: Potassium Chloride Oral Tablet 20 MEQ 60 MEQ PO (10:25)
[2023-06-11] MEDS: buPROPion (XL) 150 MG TABLET.XL PO (10:25)
[2023-06-11] MEDS: Cholecalciferol (Vit D3) 125 MCG CAPSULE (5,000 UNITS) PO (10:26)
--- NOTE | 2023-06-11 14:21 | PN.HOSP_ITS ---
Reason for Visit Reason for Visit: Altered mental status Subjective Subjective Patient still with confusion but his alertness has improved exponentially since admission. No complaints at this time. Objective Data Objective Data Vital Signs: Vital Signs Temp Pulse Resp BP Pulse Ox O2 Del Method O2 Flow Rate 97.5 F L 68 16 118/78 95 Room Air 2 06/11/23 10:13 06/11/23 10:13 06/11/23 10:13 06/11/23 12:54 06/11/23 10:13 06/11/23 10:13 06/10/23 07:36 Oxygen Flow Rate (L/min) 2 Oxygen Delivery Method Room Air Weight: 98.4 kg Body Mass Index (BMI) 29.4 Intake & Output: Intake and Output for Last 24 Hours 06/09/23 06/10/23 06/11/23 23:59 23:59 23:59 Intake Total 3522.5 / 3522.5 3275 / 3275 1979 / 1979 Output Total 1300 / 1300 1100 / 1100 450 / 450 Balance 2222.5 / 2222.5 2175 / 2175 1530 / 1530 Lab / Micro Data 06/11/23 07:10 06/11/23 07:10 Labs: Laboratory Results - last 24 hr 06/11/23 07:10: WBC 7.8, RBC 3.81 L, Hgb 10.8 L, Hct 32.8 L, MCV 86.1, MCH 28.3, MCHC 32.9, RDW Std Deviation 38.7, RDW Coeff of Noam 12.2, Plt Count 242, MPV 9.7, Immature Gran % (Auto) 1.400 H, Neut % (Auto) 68.4, Lymph % (Auto) 19.3, [place] % (Auto) 10.0, Eos % (Auto) 0.5, Baso % (Auto) 0.4, Absolute Neuts (auto) 5.4, Absolute Lymphs (auto) 1.51, Nucleated RBC % 0, Sodium 142, Potassium 3.2 L , Chloride 108 H, Carbon Dioxide 26.0, Anion Gap 8, BUN 32 H, Creatinine 2.22 H, Estim Creat Clear Calc 44.08, Est GFR (MDRD) Af Amer 39 L, Est GFR (MDRD) Non-Af 33 L, BUN/Creatinine Ratio 14.4, Glucose 92, Calcium 8.9 Micro: Microbiology 03/11/24 11:15 Blood Culture (Wb) - Right Hand Blood Culture - Preliminary No growth in 48 hours. 06/08/23 10:15 Blood Culture (Wb) - Right Hand Blood Culture - Preliminary No growth in 48 hours. 06/08/23 11:30 Urine, Clean Catch Urine Culture - Final Culture exhibits no growth. 06/09/23 18:23 Urine Catheter - Mcmahon Legionella Antigen - Final 06/09/23 18:23 Urine Catheter - Mcmahon Streptococcus pneumoniae Antigen (M - Final 06/08/23 10:30 Mucosa - Nose SARS-CoV-2, Influenza & RSV (PCR) - Final Influenzae A Physical Exam Const alert, no apparent distress and well nourished; Negative for oriented x3, average body habitus or healthy appearing Constitutional Narrative: Overweight, calm, middle-aged, white male, sitting up in a chair at the bedside, interaction is much better, oriented to self only still next-appears comfortable, nontoxic, nurses aide at the bedside HEENT normocephalic, head/scalp atraumatic and hearing grossly normal bilaterally HEENT Narrative: Mallampati 3, dentition is poor Resp normal respiratory effort, no retractions, no use of accessory muscles and clear to auscultation bilaterally Auscultation: Negative for rales, rhonchi or wheezes Cardio regular rate, regular rhythm, S1 normal heart sound, S2 normal heart sound, no murmurs, no rub, no gallops and no clicks GI normal to inspection, nondistended, normoactive bowel sounds, soft to palpation and non-tender Extremity no clubbing, cyanosis or edema Extremity Narrative: Pedal pulses are 2+ Skin Skin Narrative: No significant lesions noted Neuro moves all extremities and no focal motor deficits Neuro Narrative: Alertness and attention is improved considerably, still with some confusion, communication is back to baseline with regards to speech Sensorium / Orientation: awake, alert and oriented to person Speech: speech normal Psych Psych Narrative: Calm sitting up in a chair, able to answer more questions, less sleepy and more interactive Assessment & Plan Assessment/Plan (1) Acute kidney injury: (2) Influenza A: (3) Hyponatremia: (4) Toxic metabolic encephalopathy: (5) Abnormal urinalysis: (6) Leukocytosis: (7) High anion gap metabolic acidosis: (8) Transaminitis: (9) CVA (cerebral vascular accident): (10) Abnormal CT of brain: PLAN: Plan Acute hypoxia secondary to influenza A -Completed Tamiflu today -Supportive care -PT/OT following -Isolation per protocol -Strep pneumo and Legionella antigens are negative -Blood and urine cultures are negative -Pulmonary toilet as ordered -I-S and Acapella as able SEBLE secondary to prerenal acidemia from dehydration -We obtained labs from his facility which showed a normal BUN and creatinine on 05/30/2023 -Serum creatinine on admission was 6.48 with a BUN of 59--> and down to 2.22 -Much improvement since admission -Continue aggressive IV fluids with LR at 150 cc/h -Continue to hold hydrochlorothiazide -Continue to hold home lisinopril -Avoid nephrotoxins as able -Renally dose medicines as needed -Repeat BMP in a.m. Acute on chronic hyponatremia -Resolved at 142 Hypokalemia -Potassium 3.2 -Patient was given 60 mill equivalents -Recheck in a.m. Toxic/metabolic encephalopathy -Likely related to influenza and uremia -Continues to improve however we have discussed his baseline with the facility and he is A and O x 3 and can feed himself -Currently still fatigued and mildly confused and requiring assistance -Continue to monitor -Baseline has some baseline mental status issues from schizophrenia/s chizoaffective disorder Hypertension -Blood pressures are trending up -Restart home propranolol -Will continue to hold lisinopril and hydrochlorothiazide due to renal function -Continue to hold all home antihypertensives -Continue to monitor and reinitiate as needed Abnormal CT of the brain -CT of the brain was suggestive for tiny lacunar in the insular cortex of the left temporal lobe -MRI was negative for any acute infarct Leukocytosis -Resolved Anemia - 10.8 -Patient is 8 and half liters positive for his hospitalization -Suspect drop is hemodilution with no signs of acute bleeding -Continue to monitor Hyperlipidemia -Will continue statin but monitor with transaminase elevation GERD -Continue home famotidine Tobacco abuse -Continue nicotine replacement therapy -Encourage cessation -Suspect patient has some baseline COPD however no PFTs available Chronic constipation -Continue home bowel regimen Vitamin D deficiency -Continue home vitamin D supplementation Schizoaffective disorder/schizophrenia -Continue home Trileptal -Continue home olanzapine -Continue home diazepam -Continue home Clazuril -Continue home Wellbutrin DVT prophylaxis -Subcu Lovenox daily CODE STATUS -DNR CCA with no intubation per records from facility Disposition: -Possible discharge tomorrow if renal function continues to improve and mental status is closer to baseline Charges/Coding Visit Charges Inpatient E&M: 74206 Subs Hosp L2
[2023-06-11] MEDS: Propranolol LA 60 MG Capsule 120 MG PO (18:54)
--- NOTE | 2023-06-11 21:11 | RAD_ITS ---
INDICATION: ADVENTITIOUS LUNG SOUNDS EXAMINATION/TECHNIQUE: X-RAY - XR Chest 1 View COMPARISON: 06/08/2023 FINDINGS: LIFE-SUPPORT AND LINES: 1. None HEART AND VESSELS: The cardiac silhouette, pulmonary vasculature have normal appearance. No evidence of congestive failure. LUNGS AND PLEURAL SPACES: Basilar atelectasis greater on the RIGHT than LEFT, superimposed infiltrate suspected. No pulmonary mass is noted. MEDIASTINUM AND HILAR REGIONS: No masses adenopathy noted. No areas of calcification. Visualized upper airway is normal in position. BONY ELEMENTS: No acute bony changes noted. RAD/Chest 1 View (Portable) IMPRESSION: 1. Bibasilar atelectasis however superimposed infiltrate at the RIGHT lung base. 2. No consolidation, congestive failure or effusion. Electronically Signed: Aleksandr Bee MD at 21:45 EDT ,
[2023-06-11] MEDS: MethylPREDNISolone 125 MG/2 ML Vial IV (21:54)
[2023-06-11] MEDS: Atorvastatin Calcium 20 MG Tablet PO (21:55)
[2023-06-11] MEDS: Doxycycline 100 MG CAPSULE PO (21:55)
[2023-06-11] MEDS: 0.9% Saline Lock 10 ML Syringe IV (21:57)
[2023-06-11 22:32] LABS: BNP,B-Type NATRIURETIC PEPTIDE 170.6 pg/mL (0-100)
[2023-06-12] VITALS (10 sets, daily range): BP systolic 149–180; BP diastolic 69–98; PULSE 53–92; RESP 16–18; TEMP 36.1–36.6; O2SAT 92–96
[2023-06-12] MEDS: Ipratropium/Albuterol Sulfate 3 ML AMPUL.NEB INHALATION (02:19)
[2023-06-12] MEDS: hydrALAZINE 20 MG/ML Vial 10 MG IV (05:02)
[2023-06-12] MEDS: 0.9% Saline Lock 10 ML Syringe IV (05:03)
[2023-06-12 07:24] LABS: Anion Gap 7 (5-15); BUN 19 mg/dL (7-18); BUN/Creat Ratio 12.9 RATIO (10-20); Calcium,Total 8.9 mg/dL (8.5-10.1); Chloride 109 mmol/L (98-107); Creatinine, Serum 1.47 mg/dL (0.70-1.30); EST Glomerular Filtration Rate 52 mL/min (>60); Est Glom Filt Rate - Afr Amer 63 mL/min (>60); Estimated Creatinine Clearance 67.25 ml/min; Glucose 144 mg/dL (74-106); Magnesium 1.5 mg/dL (1.6-2.6); Phosphorus 3.4 mg/dL (2.5-4.9); Potassium 3.3 mmol/L (3.5-5.1); Sodium Level 139 mmol/L (136-145)
[2023-06-12] MEDS: Potassium Chloride Oral Tablet 20 MEQ 60 MEQ PO (08:24)
[2023-06-12] MEDS: cloZAPine 100 MG TABLET PO (08:25)
[2023-06-12] MEDS: buPROPion (XL) 150 MG TABLET.XL PO (08:26)
[2023-06-12] MEDS: Famotidine 20 MG Tablet PO (08:26)
[2023-06-12] MEDS: Cholecalciferol (Vit D3) 125 MCG CAPSULE (5,000 UNITS) PO (08:26)
[2023-06-12] MEDS: MethylPREDNISolone 125 MG/2 ML Vial 60 MG IV (08:29)
[2023-06-12] MEDS: Lisinopril 10 MG Tablet PO (08:29)
[2023-06-12] MEDS: amLODIPine 10 MG Tablet PO (08:29)
[2023-06-12] MEDS: OXcarbazepine 300 MG Tablet PO (08:30)
[2023-06-12] MEDS: Doxycycline 100 MG CAPSULE PO (08:30)
[2023-06-12] MEDS: buPROPion (XL) 300 MG TABLET.XL PO (08:31)
[2023-06-12] MEDS: OLANZapine 5 MG/TAB TAB.RAPDIS PO (09:05)
[2023-06-12] MEDS: Enoxaparin 40 MG/0.4 ML Syringe SC (09:05)
[2023-06-12] MEDS: Magnesium Sulfate 4gm/100mL 4 GM/100 ML IV.SOLN. IV (09:32)
[2023-06-12] MEDS: diazePAM 5 MG Tablet 10 MG PO (09:32)
[2023-06-12] MEDS: hydrALAZINE 50 MG Tablet PO (09:32)
--- NOTE | 2023-06-12 13:02 | PCM.DC.SUM ---
Providers Date of Admission: 06/08/23 Date of Discharge: 06/12/23 Primary Care Physician: Dr. Soto Mathis MD Reason For Visit: FLU A, SEBLE, HYPONATREMIA Diagnosis Discharge Diagnosis (1) Acute kidney injury: Status: Acute Code(s): N17.9 - Acute kidney failure, unspecified (2) Influenza A: Status: Acute Code(s): J10.1 - Influenza due to other identified influenza virus with other respiratory manifestations (3) Hyponatremia: Status: Acute Code(s): E87.1 - Hypo-osmolality and hyponatremia (4) Toxic metabolic encephalopathy: Status: Acute Code(s): G92.8 - Other toxic encephalopathy (5) Abnormal urinalysis: Status: Acute Code(s): R82.90 - Unspecified abnormal findings in urine (6) Leukocytosis: Status: Acute Code(s): D72.829 - Elevated white blood cell count, unspecified (7) High anion gap metabolic acidosis: Status: Acute Code(s): E87.29 - Other acidosis (8) Transaminitis: Status: Acute Code(s): R74.01 - Elevation of levels of liver transaminase levels (9) CVA (cerebral vascular accident): Status: Ruled-out Code(s): I63.9 - Cerebral infarction, unspecified (10) Abnormal CT of brain: Status: Acute Code(s): R90.89 - Other abnormal findings on diagnostic imaging of central nervous system Medications at Discharge Home Medications acetaminophen 325 mg tablet (Aphen) 650 mg PO Q4H PRN pain 06/08/23 aluminum-mag hydroxide-simethicone 200 mg-200 mg-20 mg/5 mL oral susp (Maalox Advanced) 30 ml PO Q8H PRN indigestion 06/08/23 atorvastatin 10 mg tablet 20 mg PO DAILY 06/08/23 bupropion HCl 150 mg 24 hr tablet, extended release (Wellbutrin XL) 150 mg PO DAILY 06/08/23 bupropion HCl 300 mg 24 hr tablet, extended release (Wellbutrin XL) 300 mg PO DAILY 06/08/23 cholecalciferol (vitamin D3) 125 mcg (5,000 unit) capsule 125 mcg PO DAILY 06/08/23 clozapine 100 mg tablet 100 mg PO DAILY SCHIZOPHRENIA 06/08/23 diazepam 10 mg tablet 10 mg PO BID 06/08/23 famotidine 20 mg tablet 20 mg PO DAILY 06/08/23 ibuprofen 200 mg tablet (Advil) 400 mg PO Q6H PRN pain 06/08/23 lisinopril 10 mg tablet 10 mg PO DAILY 06/08/23 loperamide 2 mg capsule 4 mg PO PRN 06/08/23 lorazepam 1 mg tablet 1 mg PO Q6H PRN anxiety 06/08/23 magnesium hydroxide 400 mg/5 mL oral suspension (Yuan Milk of Magnesia) 30 ml PO DAILY PRN constipation 06/08/23 nicotine (polacrilex) 2 mg buccal mini lozenge (Nicorette) 2 mg buccal Q2H 06/08/23 olanzapine 5 mg tablet 5 mg PO DAILY 06/08/23 oxcarbazepine 300 mg tablet (Trileptal) 300 mg PO BID 06/08/23 polyethylene glycol 3350 17 gram/dose oral powder (ClearLax) 17 g PO DAILY PRN constipation 06/08/23 psyllium husk 3.4 gram/5.4 gram oral powder (Metamucil) 1 tbsp PO TID PRN constipation 06/08/23 amlodipine 10 mg tablet 10 mg PO DAILY #0 tabs 06/12/23 amoxicillin 875 mg-potassium clavulanate 125 mg tablet 1 tab PO BID #10 tabs 06/12/23 hydralazine 50 mg tablet 50 mg PO TID #90 tabs 06/12/23 Hospital Course Operations None Procedures EKG and - (Chest x-ray/CT brain/renal ultrasound/MRI brain) Summary of Care Provided Minutes Spent on Discharge: 39 Hospital Course: Mr. Leonard is a 58-year-old white male who presented from a local [facility] with altered mental status. He was markedly confused on admission and was not oriented at all however he was alert and very combative initially. Per [facility] staff he became confused on the day of presentation and was found to be hypotensive. He was also noted to be having some hallucinations at that time as well. They indicated he had contact with someone who is positive for COVID-19 recently and was transferred to the emergency department for that concern. He was not able to contribute to his history at the time of presentation. We had had multiple admissions from his facility that had tested positive for influenza. Vital signs on presentation showed temperature of 96.9, heart rate was 70, blood pressure initially was 77/43 but has improved to 107/70 after IV fluids have been given, respiratory rate is 21 oxygen saturations were 94% on room air. CBC shows a leukocytosis with a white count of 15.2 and a left shift at an 85.0% neutrophilia. He does have a lymphopenia. Coags are unremarkable. ABG showed a blood gas with a pH of 7.36/bicarb 18.4/pCO2 was 32.6/pO2 was 63 with a sat of 91% on room air. His chemistry panel shows significant hyponatremia with a sodium of 127, hypochloremia with a chloride of 93, and elevated serum bicarbonate 17 with an anion gap of 17. His BUN and serum creatinine were markedly elevated at 59 and 6.48. His baseline is unknown as there is no previous data in our system. Lactic acid was normal at 1.6. Transaminases were elevated with an AST of 82 and an ALT of 99. Troponin was normal. BNP was unremarkable at 3.6. His urine was somewhat suggestive of infection showing some nitrites and leuk esterase however there were no white cells. He did have 1+ bacteria. Ethyl alcohol level was unremarkable and acetone was negative. CT of the brain showed tiny lacunar in the insular cortex of the left temporal lobe which was felt to possibly be subacute. Chest x-ray showed unremarkable exam. We obtained a renal ultrasound that was unremarkable. His calculated FeNa was 0.11% indicating significant prerenal azotemia likely related to dehydration. He was given aggressive hydration with IV fluids and his kidney function improved dramatically and was down to 1.57 at the time of discharge. We did hold his home ibuprofen and lisinopril while he was hospitalized as his blood pressure was initially low and due to his renal function. We were able to restart his lisinopril at the time of discharge as his blood pressure was trending up and his renal function was improving. I would recommend continuing to hold his ibuprofen at least for the next 2 weeks until he can have complete recovery of his renal function. I highly suspect his confusion was likely related to decreased clearance of all his medications with his profound SEBLE on presentation. With regards to his influenza he was given supportive care. Initially antibiotics were held however at discharge we will start some as he developed some shortness of breath the night before which had resolved on the day of discharge but his chest x-ray showed possible right lower lobe infiltrate. We did an ambulatory pulse ox prior to discharge and he was 96% on room air at rest and 94 with exertion. I will have him complete a 5-day course of Augmentin. We also discontinued his hydrochlorothiazide. It appeared that he was chronically hyponatremic with acute hyponatremia on presentation due to his dehydration. With discontinuing his hydrochlorothiazide and hydration his sodium normalized. We substituted hydralazine in place of his HCTZ for improved blood pressure control. He was also to be on amlodipine 10 mg p.o. daily I highly recommend a repeat basic metabolic profile be done on 06/15/2023 to reassess his renal function. His mental status improved dramatically and he was alert to self and place at the time of discharge. With regards to the abnormal CT on presentation being suggestive of stroke we did obtain an MRI which was negative for any acute infarct. He completed his course of Tamiflu. [place] [facility] [place] and is to have ongoing physical and Occupational Therapy for weakness that developed due to his acute illness and requirement for hospitalization. I recommend that he follow-up with his primary care physician within the next week. Discharge diagnoses: Acute hypoxia-resolved Influenza A-Tamiflu completed SEBLE secondary to prerenal azotemia-resolving Dehydration-resolved Acute on chronic hyponatremia-resolved Hypokalemia-replaced Toxic/metabolic encephalopathy-resolving Hypertension Abnormal CT of the brain Leukocytosis-resolved Anemia-stable Hyperlipidemia GERD Tobacco abuse Chronic constipation Vitamin D deficiency Schizoaffective disorder/schizophrenia Physical Exam Const alert, no apparent distress and well nourished; Negative for oriented x3, average body habitus or healthy appearing Constitutional Narrative: Overweight, calm, middle-aged, white male, sitting up in bed, alert, interacts appropriate at this point, memory seems to be somewhat impaired but able to tell me his name and birthdate and that he is at the hospital. General Appearance: cooperative, comfortable, well kempt, well developed and uncooperative Orientation / Consciousness: awake, oriented to person and confused Nutritional Appearance: obese HEENT normocephalic, head/scalp atraumatic and hearing grossly normal bilaterally HEENT Narrative: Mallampati is 2-3, no thrush Eyes PERRL, EOMs intact bilaterally and conjunctivae normal Eyes Narrative: No scleral icterus Neck no lymphadenopathy and supple Neck Narrative: Trachea midline, no thyroid enlargement Resp normal respiratory effort, no retractions, no use of accessory muscles and clear to auscultation bilaterally Auscultation: Negative for rales, rhonchi or wheezes Cardio regular rate, regular rhythm, S1 normal heart sound, S2 normal heart sound, no murmurs, no rub, no gallops and no clicks GI normal to inspection, nondistended, normoactive bowel sounds, soft to palpation and non-tender Extremity no clubbing, cyanosis or edema Extremity Narrative: Pedal pulses are 2+ Skin no rashes or lesions noted, no wounds, skin turgor normal, no jaundice, no petechiae and no mottling Skin Narrative: No significant lesions noted Neuro moves all extremities and no focal motor deficits Neuro Narrative: Alertness and attention seem to be back to baseline, response times to question seem to be a little bit slow but I am not clear exactly what his baseline is, he is alert and oriented to self and is able to tell me he is in the hospital Sensorium / Orientation: awake, alert and oriented to person Speech: speech normal Psych Psych Narrative: Calm sitting up in bed watching television Weight / BMI Weight Weight: 100.6 kg Body Mass Index (BMI) 30.0 ABG / Lab / Microbiology Data 06/11/23 07:10 06/12/23 06:10 Laboratory: Laboratory Results - last 24 hr 06/11/23 22:00: B-Natriuretic Peptide 170.6 H 06/12/23 06:10: Sodium 139, Potassium 3.3 L, Chloride 109 H, Carbon Dioxide 23.0, Anion Gap 7, BUN 19 H, Creatinine 1.47 H, Estim Creat Clear Calc 67.25, Est GFR (MDRD) Af Amer 63, Est GFR (MDRD) Non-Af 52 L, BUN/Creatinine Ratio 12.9, Glucose 144 H, Calcium 8.9, Phosphorus 3.4, Magnesium 1.5 L Microbiology: Microbiology 06/08/23 11:15 Blood Culture (Wb) - Right Hand Blood Culture - Preliminary No growth in 48 hours. 06/08/23 10:15 Blood Culture (Wb) - Right Hand Blood Culture - Preliminary No growth in 48 hours. 06/08/23 11:30 Urine, Clean Catch Urine Culture - Final Culture exhibits no growth. 06/09/23 18:23 Urine Catheter - Mcmahon Legionella Antigen - Final 06/09/23 18:23 Urine Catheter - Mcmahon Streptococcus pneumoniae Antigen (M - Final 06/08/23 10:30 Mucosa - Nose SARS-CoV-2, Influenza & RSV (PCR) - Final Influenzae A Radiography Diagnostic Testing: Radiology Impression Chest X-Ray 06/11/23 21:11 IMPRESSION: 1. Bibasilar atelectasis however superimposed infiltrate at the RIGHT lung base. 2. No consolidation, congestive failure or effusion. Electronically Signed: Aleksandr Bee MD at 21:45 EDT , D/C Instructions Discharge Diet: Low fat / Low cholesterol Meaningful Use Info Meaningful Use Diagnoses (Choose all that apply): None applicable Discharge Plan Admission Admit Date/Time: 06/08/23 12:31 Primary Reason for Your Visit: altered mental status Attending Provider: Lupe Thomas Primary Care Provider: Soto Mathis Instructions Additional Instructions / Restrictions: 1. Patient needs a follow-up basic metabolic profile on 06/15/2023 2. Please complete all antibiotics as prescribed Discharge Orders/Prescriptions Prescriptions: New amlodipine 10 mg Tablet 10 mg PO DAILY Qty: 0 0RF amoxicillin-pot clavulanate 875-125 mg tablet 1 tab PO BID Qty: 10 0RF hydralazine 50 mg tablet 50 mg PO TID Qty: 90 0RF Continued lorazepam 1 mg tablet 1 mg PO Q6H PRN (Reason: anxiety) clozapine 100 mg tablet 100 mg PO DAILY atorvastatin 10 mg tablet 20 mg PO DAILY lisinopril 10 mg tablet 10 mg PO DAILY loperamide 2 mg capsule 4 mg PO PRN Rx Instructions: 2T AFTER 1ST LOOSE STOOL EPISODE THEN 1T AFTER EA SUBSEQUENT LOOSE STOOL; NOT TO EXCEED 4T IN 24HRS alum-mag hydroxide-simeth [Maalox Advanced] 200-200-20 mg/5 mL suspension 30 ml PO Q8H PRN (Reason: indigestion) Metamucil 3.4 gram/5.4 gram powder 1 tbsp PO TID PRN (Reason: constipation) Rx Instructions: mix into at least 8 oz of water or juice before administering magnesium hydroxide [Yuan Milk of Magnesia] 400 mg/5 mL suspension 30 ml PO DAILY PRN (Reason: constipation) polyethylene glycol 3350 [ClearLax] 17 gram/dose powder 17 g PO DAILY PRN (Reason: constipation) nicotine (polacrilex) [Nicorette] 2 mg mini lozenge 2 mg buccal Q2H famotidine 20 mg tablet 20 mg PO DAILY oxcarbazepine [Trileptal] 300 mg tablet 300 mg PO BID acetaminophen [Aphen] 325 mg tablet 650 mg PO Q4H PRN (Reason: pain) diazepam 10 mg tablet 10 mg PO BID cholecalciferol (vitamin D3) 125 mcg (5,000 unit) capsule 125 mcg PO DAILY bupropion HCl [Wellbutrin XL] 150 mg tablet extended release 24 hr 150 mg PO DAILY bupropion HCl [Wellbutrin XL] 300 mg tablet extended release 24 hr 300 mg PO DAILY olanzapine 5 mg tablet 5 mg PO DAILY Held ibuprofen [Advil] 200 mg tablet 400 mg PO Q6H PRN (Reason: pain) Hold Instructions: 2 weeks Discontinued hydrochlorothiazide 12.5 mg tablet 12.5 mg PO DAILY propranolol [Inderal LA] 120 mg capsule,extended release 24 hr 120 mg PO Q24H levofloxacin 500 mg tablet 500 mg PO DAILY oseltamivir [Tamiflu] 75 mg capsule 75 mg PO BID Referrals / Follow Up: Soto Mathis MD [Primary Care Provider] - Within 1 Week Disposition Disposition (needs filled in before D/C Order can be placed): NonSkilled NH/Intermed Care Charges/Coding Visit Charges Inpatient E&M: 14237 SNF Disch >30 Min
--- NOTE | 2023-06-12 13:19 | PHA.DC.MR.R ---
Pharmacy [place] Med Reconciliation Pharmacy Service has performed discharge medication reconciliation for this patient. The patient's discharge medication list was reviewed for discrepancies and discrepancies were resolved. Medications at Discharge Home Medications acetaminophen 325 mg tablet (Aphen) 650 mg PO Q4H PRN pain 06/08/23 aluminum-mag hydroxide-simethicone 200 mg-200 mg-20 mg/5 mL oral susp (Maalox Advanced) 30 ml PO Q8H PRN indigestion 06/08/23 atorvastatin 10 mg tablet 20 mg PO DAILY 06/08/23 bupropion HCl 150 mg 24 hr tablet, extended release (Wellbutrin XL) 150 mg PO DAILY 06/08/23 bupropion HCl 300 mg 24 hr tablet, extended release (Wellbutrin XL) 300 mg PO DAILY 06/08/23 cholecalciferol (vitamin D3) 125 mcg (5,000 unit) capsule 125 mcg PO DAILY 06/08/23 clozapine 100 mg tablet 100 mg PO DAILY SCHIZOPHRENIA 06/08/23 diazepam 10 mg tablet 10 mg PO BID 06/08/23 famotidine 20 mg tablet 20 mg PO DAILY 06/08/23 ibuprofen 200 mg tablet (Advil) 400 mg PO Q6H PRN pain 06/08/23 lisinopril 10 mg tablet 10 mg PO DAILY 06/08/23 loperamide 2 mg capsule 4 mg PO PRN 06/08/23 lorazepam 1 mg tablet 1 mg PO Q6H PRN anxiety 06/08/23 magnesium hydroxide 400 mg/5 mL oral suspension (Yuan Milk of Magnesia) 30 ml PO DAILY PRN constipation 06/08/23 nicotine (polacrilex) 2 mg buccal mini lozenge (Nicorette) 2 mg buccal Q2H 06/08/23 olanzapine 5 mg tablet 5 mg PO DAILY 06/08/23 oxcarbazepine 300 mg tablet (Trileptal) 300 mg PO BID 06/08/23 polyethylene glycol 3350 17 gram/dose oral powder (ClearLax) 17 g PO DAILY PRN constipation 06/08/23 psyllium husk 3.4 gram/5.4 gram oral powder (Metamucil) 1 tbsp PO TID PRN constipation 06/08/23 amlodipine 10 mg tablet 10 mg PO DAILY #0 tabs 06/12/23 hydralazine 50 mg tablet 50 mg PO BID #0 tabs 06/12/23
--- NOTE | 2023-06-12 13:39 | TREXTCAR_ITS ---
Diet Diet Order/Speech Therapy: 06/08/23 14:50 Diet: Cardiac - Heart Healthy Food consistency:: Regular Liquid Consistency:: Regular/Thin Is pt able to select menu?: No Routine Orders/Code Status Suppository Frequency: Daily PRN O2 Frequency: PRN Keep PO Greater than or Equal to (%): 89 Routine Lab Work: [facility] (on 06/15/2023) Code Status: DNRCC-A (no intubation) Therapies Weight Bearing: Full weight bearing Physical Therapy: Eval and Treat Occupational Therapy: Eval and Treat Problem/Diagnosis (1) Acute kidney injury: Status: Acute Code(s): N17.9 - Acute kidney failure, unspecified (2) Influenza A: Status: Acute Code(s): J10.1 - Influenza due to other identified influenza virus with other respiratory manifestations (3) Hyponatremia: Status: Acute Code(s): E87.1 - Hypo-osmolality and hyponatremia (4) Toxic metabolic encephalopathy: Status: Acute Code(s): G92.8 - Other toxic encephalopathy (5) Abnormal urinalysis: Status: Acute Code(s): R82.90 - Unspecified abnormal findings in urine (6) Leukocytosis: Status: Acute Code(s): D72.829 - Elevated white blood cell count, unspecified (7) High anion gap metabolic acidosis: Status: Acute Code(s): E87.29 - Other acidosis (8) Transaminitis: Status: Acute Code(s): R74.01 - Elevation of levels of liver transaminase levels (9) CVA (cerebral vascular accident): Status: Ruled-out Code(s): I63.9 - Cerebral infarction, unspecified (10) Abnormal CT of brain: Status: Acute Code(s): R90.89 - Other abnormal findings on diagnostic imaging of central nervous system Allergies/Procedures Done in Hospital Allergies No Known Allergies Allergy (Verified 06/08/23 09:25) Procedures: - (Chest x-ray/CT brain/) Type of Care/Length of Stay Estimated LOS: More Than 30 Days Type of Care Needed: Intermediate Rehab Potential: Fair Prognosis: Good Additional Orders/Day of Discharge Day of Discharge: 06/12/23 Dietary and Speech Recommendations Dietitian Recommendations/Changes: Will continue cardiac diet as ordered. ONS as needed once PO established with meals. Follow Up Care Please follow up with your Primary Care Physician in: 1 week Discharge Plan Admission Admit Date/Time: 06/08/23 12:31 Primary Reason for Your Visit: altered mental status Attending Provider: Lupe Thomas Primary Care Provider: Soto Mathis Instructions Additional Instructions / Restrictions: 1. Patient needs a follow-up basic metabolic profile on 06/15/2023 2. Please complete all antibiotics as prescribed Discharge Orders/Prescriptions Prescriptions: New amlodipine 10 mg Tablet 10 mg PO DAILY Qty: 0 0RF amoxicillin-pot clavulanate 875-125 mg tablet 1 tab PO BID Qty: 10 0RF hydralazine 50 mg tablet 50 mg PO TID Qty: 90 0RF Continued lorazepam 1 mg tablet 1 mg PO Q6H PRN (Reason: anxiety) clozapine 100 mg tablet 100 mg PO DAILY atorvastatin 10 mg tablet 20 mg PO DAILY lisinopril 10 mg tablet 10 mg PO DAILY loperamide 2 mg capsule 4 mg PO PRN Rx Instructions: 2T AFTER 1ST LOOSE STOOL EPISODE THEN 1T AFTER EA SUBSEQUENT LOOSE STOOL; NOT TO EXCEED 4T IN 24HRS alum-mag hydroxide-simeth [Maalox Advanced] 200-200-20 mg/5 mL suspension 30 ml PO Q8H PRN (Reason: indigestion) Metamucil 3.4 gram/5.4 gram powder 1 tbsp PO TID PRN (Reason: constipation) Rx Instructions: mix into at least 8 oz of water or juice before administering magnesium hydroxide [Yuan Milk of Magnesia] 400 mg/5 mL suspension 30 ml PO DAILY PRN (Reason: constipation) polyethylene glycol 3350 [ClearLax] 17 gram/dose powder 17 g PO DAILY PRN (Reason: constipation) nicotine (polacrilex) [Nicorette] 2 mg mini lozenge 2 mg buccal Q2H famotidine 20 mg tablet 20 mg PO DAILY oxcarbazepine [Trileptal] 300 mg tablet 300 mg PO BID acetaminophen [Aphen] 325 mg tablet 650 mg PO Q4H PRN (Reason: pain) diazepam 10 mg tablet 10 mg PO BID cholecalciferol (vitamin D3) 125 mcg (5,000 unit) capsule 125 mcg PO DAILY bupropion HCl [Wellbutrin XL] 150 mg tablet extended release 24 hr 150 mg PO DAILY bupropion HCl [Wellbutrin XL] 300 mg tablet extended release 24 hr 300 mg PO DAILY olanzapine 5 mg tablet 5 mg PO DAILY Held ibuprofen [Advil] 200 mg tablet 400 mg PO Q6H PRN (Reason: pain) Hold Instructions: 2 weeks Discontinued hydrochlorothiazide 12.5 mg tablet 12.5 mg PO DAILY propranolol [Inderal LA] 120 mg capsule,extended release 24 hr 120 mg PO Q24H levofloxacin 500 mg tablet 500 mg PO DAILY oseltamivir [Tamiflu] 75 mg capsule 75 mg PO BID Referrals / Follow Up: Soto Mathis MD [Primary Care Provider] - Within 1 Week Disposition Disposition (needs filled in before D/C Order can be placed): NonSkilled NH/Intermed Care
--- NOTE | 2023-06-12 13:53 | NURSING ---
Report called to nurse Carla for pt to be d/c back to [facility].
--- NOTE | 2023-06-12 14:34 | CASEMGMT ---
Discharge Planning Discharge orders, signed med list, and transport time faxed to [facility] J[facility]. Physicians will transport patient by cot at 4:30p. Nursing, SW, and patients mother updated. Carolyn Cam, Discharge Planning Asst.
== END 2023-06-12 16:46 | disposition intermediate care facility (04) | DRG 193 ==
LOC: ED 13:01 → PCU 13:55
PROVIDERS: Internal Medicine; Admitting Provider Internal Medicine; Emergency Provider Emergency Medicine; PCP Family Medicine; Visit Provider Internal Medicine
DX: J10.1 Influenza due to other identified influenza virus with other respiratory manifestations (principal); G92.8 Other toxic encephalopathy; E87.1 Hypo-osmolality and hyponatremia; E87.20 Acidosis, unspecified; N17.9 Acute kidney failure, unspecified; J44.0 Chronic obstructive pulmonary disease with (acute) lower respiratory infection; F25.9 Schizoaffective disorder, unspecified; J44.9 Chronic obstructive pulmonary disease, unspecified; I10 Essential (primary) hypertension; D64.9 Anemia, unspecified; E03.9 Hypothyroidism, unspecified; K21.9 Gastro-esophageal reflux disease without esophagitis; E55.9 Vitamin D deficiency, unspecified; E78.5 Hyperlipidemia, unspecified; E87.6 Hypokalemia; K59.09 Other constipation; E86.0 Dehydration; R74.01 Elevation of levels of liver transaminase levels; Z66 Do not resuscitate; Z87.891 Personal history of nicotine dependence; Z79.899 Other long term (current) drug therapy; Z79.890 Hormone replacement therapy
CPT/HCPCS: 36415; 36600; 70450; 70551; 71045; 76770; 80048; 80053; 80061; 80320; 81001; 82009; 82140; 82570; 82803; 82962; 83036; 83605; 83735; 83880; 84100; 84300; 84443; 84484; 85025; 85610; 85730; 87040; 87086; 87449; 87631; 93005; 94640; 97162; 97166; 97530; 97535; 99285; J7030; J7040; J7120; P9612; A4216; G0480

== ENCOUNTER → 2025-03-15 | Outpatient (CLI) | payer MEDICARE, MEDICAID, SELFPAY ==
[2025-03-15 12:20] LABS: Anion Gap 13 (5-15); BUN 6 mg/dL (4-19); BUN/Creat Ratio 7.2 RATIO (10-20); Calcium,Total 9.3 mg/dL (7.6-11.0); Carbon Dioxide 23.2 mmol/L (21.0-32.0); Chloride 98 mmol/L (98-108); Glucose 100 mg/dL (70-99); Potassium 4.4 mmol/L (3.3-5.1)
== END | disposition home or self-care (01) ==
LOC: LABSPEC 11:10
PROVIDERS: PCP Family Medicine; Visit Provider Family Medicine
DX: E87.1 Hypo-osmolality and hyponatremia (principal)
CPT/HCPCS: 80048

== ENCOUNTER → 2025-03-17 | Outpatient (CLI) | payer MEDICARE, MEDICAID, SELFPAY ==
[2025-03-17 11:37] LABS: Anion Gap 12 (5-15); BUN 12 mg/dL (4-19); BUN/Creat Ratio 9.8 RATIO (10-20); Calcium,Total 9.1 mg/dL (7.6-11.0); Carbon Dioxide 22.8 mmol/L (21.0-32.0); Chloride 103 mmol/L (98-108); Glucose 122 mg/dL (70-99); Potassium 4.1 mmol/L (3.3-5.1)
== END | disposition home or self-care (01) ==
LOC: LABSPEC 10:50
PROVIDERS: PCP Family Medicine; Referring Provider Family Medicine; Visit Provider Family Medicine
DX: E87.1 Hypo-osmolality and hyponatremia (principal)
CPT/HCPCS: 80048